=== PATIENT | female | born 1975 | race Caucasian/White ===

== ENCOUNTER 2016-10-25 11:51 | Emergency (ER) | payer SELFPAY ==
[2016-10-25] MEDS ORDERED: Ketorolac INJ* 30 MG/ML 1 ML VIAL IV ONE (12:17)
[2016-10-25] MEDS ORDERED: Dexamethasone IV* 4 MG/ML 1 ML (4 MG) IV SLOW PU ONE (12:21)
[2016-10-25] MEDS ORDERED: Orphenadrine Citrate IV* 30 MG/ML 2 ML VIAL IV ONE (12:21)
[2016-10-25 12:47] LABS: Hematocrit 41 % (35-47); Hemoglobin 13.8 g/dl (12.0-16.0); Mean Corpuscular HGB Conc 34 g/dl (31-36); Mean Corpuscular Hemoglobin 30 pg (27-31); Mean Corpuscular Volume 89 fL (80-97); Mean Platelet Volume 8 um3 (7.4-10.4); Red Blood Count 4.59 10^6/ul (4.0-5.4); Red Cell Distribution Width 13 % (10.5-15); White Blood Count 8.9 10^3/ul (3.5-10.8)
[2016-10-25 13:03] LABS: Albumin 4.3 g/dL (3.2-5.2); BUN/Creatinine Ratio 16.2 (8-20); Calcium 9.3 mg/dL (8.6-10.3); EGFR African American 122.6 (>60); EGFR Non-African American 95.4 (>60); Potassium 3.5 mmol/L (3.5-5.0); Total Bilirubin 0.4 mg/dL (0.2-1.0); Total Protein 7.3 g/dL (6.4-8.9)
--- NOTE | 2016-10-25 13:20 | RAD ---
Indication: Neck pain post fall. Comparison: No relevant prior exams available on the [facility] PACS for comparison. Technique: Noncontrast CT vertex of skull through foramen magnum. Report: The sulci, ventricles, and basal cisterns are normal for age. Lara matter white matter differentiation is preserved without evidence for edema. No intra or extra axial hemorrhage, mass, or fluid collection detected. Unremarkable visualized orbital contents. Unremarkable calvarium and skull base. Unremarkable scalp. The visualized paranasal sinuses and mastoid air spaces are clear. IMPRESSION: No evidence for traumatic brain injury or acute intracranial process. Negative unenhanced head CT.
--- NOTE | 2016-10-25 13:27 | RAD ---
INDICATION: Neck pain post fall. Post 3 level fusion in June 2011. COMPARISON: March 12, 2015 MRI. TECHNIQUE: Multidetector CT images foramen magnum to lung apices without contrast. Multiplanar reformation. REPORT: Negative for spondylolisthesis or facet subluxation at any level. Post anterior C4-C5, C5-C6, and C6-C7 fusion. No compelling evidence for loosening of the anterior cortical plate or fixation screws. Solid osseous fusion across the C6-C7 disc space. Bone graft visible at the C4-C5 and C5-C6 levels with probable partial osseous fusion. At C3-C4 uncinate process spurring results in mild LEFT foraminal stenosis. At C4-C5 uncinate process spurring results in slight RIGHT foraminal stenosis. At C6-C7 dorsal disc osteophyte complex results in mild impression on the ventral margin of the thecal sac. IMPRESSION: 1. No acute traumatic injury of the cervical spine evident. 2. Postsurgical change of C4-C5, C5-C6, and C6-C7 anterior fusion without suspicious finding. 3. Mild LEFT foraminal C3-C4, RIGHT foraminal C4-C5, and mild C6-C7 central canal stenosis.
--- NOTE | 2016-10-25 13:37 | RAD ---
Indication: Back pain post fall. Comparison: April 14, 2014 CT. Technique: Noncontrast CT lumbar sacral spine. Multiplanar reformation. Report: Negative for paravertebral hematoma. Negative for fracture or spondylolysis at any level. Normal vertebral alignment without spondylolisthesis at any level. T12-L1: Unremarkable disc level for age without acquired spinal stenosis. L1-L2: Unremarkable disc level for age without acquired spinal stenosis. L2-L3: Unremarkable disc level for age without acquired spinal stenosis. L3-L4: Unremarkable disc level for age without acquired spinal stenosis. L4-L5: Annular disc bulge. Severe posterior element hypertrophic arthropathy. Resulting severe acquired central canal stenosis and mild to moderate bilateral foraminal stenosis. L5-S1: Advanced facet joint osteoarthritis without central canal or foraminal stenosis. IMPRESSION: No traumatic lumbar sacral spine injury evident. Degenerative spondylosis and facet joint osteoarthritis with resulting spinal stenosis as described without significant change.
[2016-10-25 14:20] VITALS: BP 118/67
[2016-10-25 14:39] LABS: Urine Bacteria Absent (Absent); Urine Bilirubin Negative (Negative); Urine Glucose Negative (Negative); Urine Nitrite Negative (Negative)
--- NOTE | 2016-10-25 15:31 | ED ---
Kelvin Blount SooYoung, scribed for Scotty Gonzáles MD on 10/25/16 at 1217 . Back Pain - HPI Summary HPI Summary: A 41 y/o F presents to ED with c/o sudden-onset back pain due to fall this AM. Pt was getting dressed this AM, when she had a syncopal episode. She fell into the door frame and hit the ground. She rates her pain as 9-10 out of 10. Associated sx: intermittent numbness to LE, RUE pain, neck pain. Previously saw Dr. Toussaint, neuro, but has not seen anyone since he left. Sees Dr. Mendieta in [place] for pain management. She takes Zipsor and alpha-lipoic acid. She is having difficulty with her worker's comp insurance paying for her Rx meds this month. PMHx: neck spinal fusion in 2011 at [facility] [facility]. - History of Current Complaint Chief Complaint: EDBackInjuryPain Stated Complaint: FALL, NECK AND BACK PIAN, HEAD PAIN Time Seen by Provider: 10/25/16 12:09 Hx Obtained From: Patient, Family/Womens Health Nurse Practitioner Onset/Duration: Sudden Onset, Still Present Onset/Duration: Still Present Timing: Constant Severity Currently: Severe Pain Intensity: 10 Pain Scale Used: 0-10 Numeric Associated Signs And Symptoms: Positive: Numbness - LE, Other - pos: RUE pain, neck pain Related History: Previous Back Injury - Allergies/Home Medications Allergies/Adverse Reactions: Allergies Allergy/AdvReac Type Severity Reaction Status Date / Time Acetaminophen [From Tylenol] Allergy Hives Verified 10/25/16 12:28 Amoxicillin Allergy Hives/Diff. Verified 10/25/16 12:28 Breathing/I tching Clindamycin Allergy Hives/Diff. Verified 10/25/16 12:28 Breathing/I tching PMH/Surg Hx/FS Hx/Imm Hx Previously Healthy: No Endocrine/Hematology History: Denies: Hx Anticoagulant Therapy, Hx Diabetes Cardiovascular History: Denies: Hx Hypertension, Hx Pacemaker/ICD Respiratory History: Denies: Hx Asthma, Hx Chronic Obstructive Pulmonary Disease (COPD) History: Denies: Hx Renal Disease Sensory History: Denies: Hx Hearing Aid Neurological History: Denies: Hx Dementia, Hx Seizures Psychiatric History: Denies: Hx Panic Disorder - Cancer History Hx Radiation Therapy: No - Maternal Uncle, 3 Maternal cousins, 3 Paternal Aunts - Surgical History Surgery Procedure, Year, and Place: gallbladder 1998, GERD 2003, CERVICAL SPINE 2012 Infectious Disease History: No Infectious Disease History: Denies: Hx Hepatitis, Hx Human Immunodeficiency Virus (HIV), Traveled Outside the [place] in Last 30 Days - Family History Known Family History: Positive: Other - Breast CA - Social History Occupation: Disabled Lives: With Family Alcohol Use: n Hx Substance Use: No Substance Use Type: Reports: None Hx Tobacco Use: Yes Smoking Status (MU): Light Every Day Tobacco Smoker Review of Systems Negative: Fever Positive: Other - pos: back pain, RUE pain, neck pain Positive: Numbness - LE All Other Systems Reviewed And Are Negative: Yes Physical Exam - Summary Physical Exam Summary: General: Patient is a well developed female without any distress that is laying comfortably in the stretcher. Skin: Jewell, warm, dry HEAD AND FACE: No signs of trauma. EYES: PERRLA, EOMI x 2. EARS: Hearing grossly intact. MOUTH: Oropharynx within normal limits. NECK: Supple, trachea is midline, no adenopathy, no JVD. difficult exam due to patient being uncomfortable secondary to pain. As I palpates the skin very superficially patient jump in pain therefore she was placed in a hard collar immobilizer. Decreased ROM secondary to the pain. CHEST: Symmetric, no tenderness at palpation LUNGS: CTA bilaterally, no rales, rhonchi or wheezing CVS: RRR, no murmur, rub, or gallop ABDOMEN: soft and Nontender without masses, no guarding or rebound. Bowel sounds are active. No Hepato-splenomegaly. No signs of inguinal hernias. BACK: Patient walked into the ED room with symmetric ambulation, No signs of limping, antalgic, able to bear weight. No signs of trauma, no soft tissue or muscle tenderness, positive spasm in the Paraspinal muscles of the lumbar spine. No masses palpated. No CVAT, no flank ecchymosis . No sacroiliac notch tenderness, No saddle anesthesia ROM: flexion/ extension/ lateral bending and rotation, note normal Straight Leg Raise: negative Patellar reflexes: brisk, symmetric Muscle strength lower extremities. Dorsiflexion/ plantar flexion of ankles normal Lower extremities: Femoral, popliteal, posterior tibial, and pedal pulses with in normal, Rectal: Patient declined. Triage Information Reviewed: Yes Vital Signs On Initial Exam: Initial Vitals Temp Pulse Resp BP Pulse Ox 98.3 F 88 14 134/99 98 10/25/16 11:54 10/25/16 11:54 10/25/16 11:54 10/25/16 11:54 10/25/16 11:54 Vital Signs Reviewed: Yes - Daryl Coma Scale Best Eye Response: 4 - Spontaneous Best Motor Response: 6 - Obeys Commands Best Verbal Response: 5 - Oriented Glascow Coma Scale Comments: 15 Diagnostics - Vital Signs Vital Signs Temp Pulse Resp BP Pulse Ox 10/25/16 11:54 98.3 F 88 14 134/99 98 - Laboratory Lab Results: Lab Results 10/25/16 10/25/16 Range/Units 12:30 12:30 WBC 8.9 (3.5-10.8) 10^3/ul RBC 4.59 (4.0-5.4) 10^6/ul Hgb 13.8 (12.0-16.0) g/dl Hct 41 (35-47) % MCV 89 (80-97) fL MCH 30 (27-31) pg MCHC 34 (31-36) g/dl RDW 13 (10.5-15) % Plt Count 382 (150-450) 10^3/ul MPV 8 (7.4-10.4) um3 Neut % (Auto) 63.9 (38-83) % Lymph % (Auto) 29.1 (25-47) % Irion % (Auto) 4.1 (1-9) % Eos % (Auto) 2.0 (0-6) % Baso % (Auto) 0.9 (0-2) % Absolute Neuts (auto) 5.7 (1.5-7.7) 10^3/ul Absolute Lymphs (auto) 2.6 (1.0-4.8) 10^3/ul Absolute Monos (auto) 0.4 (0-0.8) 10^3/ul Absolute Eos (auto) 0.2 (0-0.6) 10^3/ul Absolute Basos (auto) 0.1 (0-0.2) 10^3/ul Absolute Nucleated RBC 0 10^3/ul Nucleated RBC % 0 Sodium 136 (133-145) mmol/L Potassium 3.5 (3.5-5.0) mmol/L Chloride 108 (101-111) mmol/L Carbon Dioxide 21 L (22-32) mmol/L Anion Gap 7 (2-11) mmol/L BUN 11 (6-24) mg/dL Creatinine 0.68 (0.51-0.95) mg/dL Est GFR ( Amer) 122.6 (>60) Est GFR (Non-Af Amer) 95.4 (>60) BUN/Creatinine Ratio 16.2 (8-20) Glucose 122 H (70-100) mg/dL Calcium 9.3 (8.6-10.3) mg/dL Total Bilirubin 0.40 (0.2-1.0) mg/dL AST 29 (13-39) U/L ALT 43 (7-52) U/L Alkaline Phosphatase 75 (34-104) U/L Total Protein 7.3 (6.4-8.9) g/dL Albumin 4.3 (3.2-5.2) g/dL Globulin 3.0 (2-4) g/dL Albumin/Globulin Ratio 1.4 (1-3) Result Diagrams: 10/25/16 12:30 10/25/16 12:30 Lab Statement: Any lab studies that have been ordered have been reviewed, and results considered in the medical decision making process. - CT BRAIN CT CT Interpretation: No Acute Changes - IMPRESSION: No evidence for traumatic brain injury or acute intracranial process. Negative unenhanced head CT. ED physician has reviewed this radiology report and agrees. CT Interpretation Completed By: Radiologist C-SPINE CT Interpretation: Positive (See Comments) - IMPRESSION: 1. No acute traumatic injury of the cervical spine evident. 2. Postsurgical change of C4-C5, C5-C6, and C6-C7 anterior fusion without suspicious finding. 3. Mild LEFT foraminal C3- C4, RIGHT foraminal C4-C5, and mild C6-C7 central canal stenosis. ED physician has reviewed this radiology report and agrees. CT Interpretation Completed By: Radiologist L-SPINE CT Interpretation: Positive (See Comments) - IMPRESSION: No traumatic lumbar sacral spine injury evident. Degenerative spondylosis and facet joint osteoarthritis with resulting spinal stenosis as described without significant change. ED physician has reviewed this radiology report and agrees CT Interpretation Completed By: Radiologist Re-Evaluation - Re-Evaluation 1 Re-Evaluation Time: 14:07 Change: Improved Comment: Discussing resuts and dispo with pt. She is feeling better, will f/u with Dr. Mendieta. Pt and family voiced understanding. Back Pain Course/Dx - Course Course Of Treatment: A 41 y/o F presents to ED with c/o sudden-onset back pain due to fall this AM. Pt was getting dressed this AM, when she had a syncopal episode. She fell into the door frame and hit the ground. She rates her pain as 9-10 out of 10. Associated sx: intermittent numbness to LE, RUE pain, neck pain. Previously saw Dr. Toussaint, neuro, but has not seen anyone since he left. Sees Dr. Mendieta in [place] for pain management. She takes Zipsor and alpha-lipoic acid. She is having difficulty with her worker's comp insurance paying for her Rx meds this month. PMHx: neck spinal fusion in 2011 at [facility] [place]. Assessment/Plan: In the ED course an IV access was obtained. Patient was placed in a front desk monitor. Patient was started with Norflex, Toradol and decadron. Labs within normal limits except for glucose of 122. C spine CT IMPRESSION: 1. No acute traumatic injury of the cervical spine evident. 2. Postsurgical change of C4-C5, C5-C6, and C6-C7 anterior fusion without suspicious. finding. 3. Mild LEFT foraminal C3-C4, RIGHT foraminal C4-C5, and mild C6-C7 central canal. stenosis. Head CT IMPRESSION: No evidence for traumatic brain injury or acute intracranial process. Negative unenhanced head CT. L spine CT IMPRESSION: No traumatic lumbar sacral spine injury evident. Degenerative spondylosis and facet joint osteoarthritis with resulting spinal stenosis as described without significant change. After medications patient is feeling better. She ambulated to the bathroom w/o a good steady walk. I discussed the case ith Dr. Rodriguez pain management and he will be happy to see patient tomorrow at his office. She will be given a prescription for [place]. Naproxen and Robaxin short course for the acute phase. She is ambulating out of the ED. At this point I discussed all the findings and test results with the patient. Patient was instructed to return to the emergency room immediately if any of the symptoms return or worsens. Patient understands and agrees. Patient is able to ambulate freely w/o aid or limp in the ER. Plan of care was discussed with the patient and patient understands and agrees. All questions were answered at patient satisfaction. There were no further complaints or concerns. Neurological exam before discharge: Patient is alert and oriented x 3. No acute neurological deficits. Patient is hemodynamically stable. Patient is to follow up with primary care physician in the next 2 3 days. He understands and agrees. - Diagnoses Differential Diagnosis/HQI/PQRI: Positive: Cauda Equina Syndrome, Fracture, Herniated Disc, Osteoporosis, Strain, Sprain Provider Diagnoses: Back pain, Neck pain, Accidental fall - Provider Notifications Discussed Care Of Patient With: John Mendieta - pain management Time Discussed With Above Provider: 12:22 Instructed by Provider To: Other - Discussing pain management for pt, recommends NSAIDS, lipoic acid. Discharge - Discharge Plan Condition: Stable Disposition: HOME Prescriptions: HYDROcodone/ACETAMIN 5-325 MG* [[place] 5-325 TAB*] 2 tab PO Q6HR PRN #9 MDD 4 PRN Reason: Pain HYDROcodone/ACETAMIN 5-325 MG* [[place] 5-325 TAB*] 1 tab PO Q4H PRN #9 tab MDD 4 PRN Reason: Pain Methocarbamol [Robaxin-750 MG TAB] 750 mg PO Q6HR PRN #9 PRN Reason: Pain Methocarbamol [Robaxin-750 MG TAB] 750 mg PO TID #9 tab Naproxen TAB* [Naprosyn 250 mg TAB*] 500 mg PO Q8H PRN #15 tab PRN Reason: Pain Patient Education Materials: Back Pain (ED), Neck Pain (ED), Fall Prevention ( ED), Methocarbamol (By mouth), Hydrocodone/Acetaminophen (By mouth), Naproxen ( By mouth) Referrals: Michoacano Chau NP [Primary Care Provider] - John Mendieta DO [Doctor of Osteopathy] - 3 Days Additional Instructions: Follow up with Dr. Mendieta in 3 days. Please return to the ED if you experience new or worsening symptoms. The documentation as recorded by the Kelvin brar SooYoung accurately reflects the service I personally performed and the decisions made by Eliecer turner Walter, MD.
[2016-10-25 15:38] LABS: Benzodiazepine Urine Screen None Detected (None Detect)
== END 2016-10-25 14:25 | disposition home or self-care (01) ==
LOC: ED 11:51
DX: M54.2 Cervicalgia (principal); M54.9 Dorsalgia, unspecified; W19.XXXA Unspecified fall, initial encounter; Y92.9 Unspecified place or not applicable; W22.09XA Striking against other stationary object, initial encounter; Z88.0 Allergy status to penicillin; Z72.0 Tobacco use
CPT/HCPCS: 36415; 70450; 72125; 72131; 80053; 80307; 81003; 81015; 85025; 87086; 96374; 96375; 99283; J1100; J1885; J2360

== ENCOUNTER 2016-10-27 13:04 | Inpatient (IN) | payer OTHER ==
[2016-10-27 14:40] LABS: Hematocrit 36 % (35-47); Hemoglobin 12.1 g/dl (12.0-16.0); Mean Corpuscular HGB Conc 33 g/dl (31-36); Mean Corpuscular Hemoglobin 30 pg (27-31); Mean Corpuscular Volume 90 fL (80-97); Mean Platelet Volume 8 um3 (7.4-10.4); Red Blood Count 4.03 10^6/ul (4.0-5.4); Red Cell Distribution Width 13 % (10.5-15); White Blood Count 8.8 10^3/ul (3.5-10.8)
[2016-10-27 15:16] LABS: Albumin 3.8 g/dL (3.2-5.2); Calcium 8.8 mg/dL (8.6-10.3); EGFR African American 109.5 (>60); EGFR Non-African American 85.2 (>60); Globulin 2.8 g/dL (2-4); Potassium 3.2 mmol/L (3.5-5.0); Total Bilirubin 0.3 mg/dL (0.2-1.0); Total Protein 6.6 g/dL (6.4-8.9)
--- NOTE | 2016-10-27 16:29 | RAD ---
HISTORY: Fall, urinary and stool retention COMPARISONS: CT dated October 25, 2016 TECHNIQUE: The following sequences were obtained of the lumbar spine: Sagittal and axial T1- and T2-weighted images, coronal T2-weighted images, and sagittal STIR images. FINDINGS: SPINAL CORD, CONUS, AND CAUDA EQUINA: The visualized spinal cord, conus, and cauda equina are normal in caliber, position, and signal intensity. ALIGNMENT: The alignment is normal. VERTEBRAL BODIES: There is mild anterolateral marginal osteophyte formation. JOINTS: There is facet hypertrophic change most pronounced at L4-L5 and L5-S1 MUSCULATURE: There is mild fatty infiltration INTERVERTEBRAL DISCS: There is mild diffuse loss of intervertebral disc height and T2 signal throughout the spine. AXIAL IMAGES: T11-T12: There is a broad-based right lateral recess disc protrusion measuring 0.2 cm in depth. There is no significant neural foraminal narrowing or central canal stenosis. T12-L1: There is no disc herniation, spinal stenosis, or neuroforaminal narrowing. L1-L2: There is no disc herniation, spinal stenosis, or neuroforaminal narrowing. L2-L3: There is no disc herniation, spinal stenosis, or neuroforaminal narrowing. L3-L4: There is bilateral facet hypertrophy. There is no significant neural foraminal narrowing or central canal stenosis. L4-L5: There is broad-based disc bulge with extensive facet and ligamentous of atrophy. There is mild bilateral neuroforaminal narrowing. There is severe narrowing of the central canal. L5-S1: There is bilateral facet hypertrophy. There is no significant neural foraminal narrowing or central canal stenosis. SOFT TISSUES: The visualized soft tissues of the abdomen are unremarkable. OTHER: None. IMPRESSION: 1. DEGENERATIVE DISC DISEASE AND OSTEOARTHRITIS. 2. THERE IS SEVERE NARROWING OF THE CENTRAL CANAL AT L4-L5. THERE IS NO SIGNIFICANT NEURAL FORAMINAL NARROWING.
[2016-10-27] MEDS ORDERED: Potassium Chlor TAB* 20 MEQ TAB.ER PO ONE (17:43)
[2016-10-27] MEDS ORDERED: Gadoteridol* (CONTRAST) 279.3 MG/ML 10 ML IV ONE (19:26)
[2016-10-27] MEDS ORDERED: Naproxen TAB* 250 MG PO PRN (19:36)
[2016-10-27] MEDS ORDERED: Omeprazole CAP* 20 MG PO PRN (19:36)
--- NOTE | 2016-10-27 21:38 | RAD ---
HISTORY: Right leg weakness, urinary retention, right arm weakness COMPARISONS: CT dated October 25, 2016, MRI dated March 12, 2015 TECHNIQUE: The following sequences were obtained of the cervical and thoracic spine: Sagittal and axial T1- and T2-weighted images, coronal T2-weighted images. Additionally, axial and sagittal T1 weighted images were obtained after contrast enhancement with a gadolinium-based intravenous contrast agent.. FINDINGS: BRAIN AND SPINAL CORD: The visualized spinal cord is normal in caliber, position, and signal intensity. The visualized portion of the brain is unremarkable. The cerebellar tonsils are normal in position. ALIGNMENT: The alignment is normal. VERTEBRAL BODIES: The patient is status post anterior cervical fusion at C4, C5, C6, and C7. JOINTS: There is mild costovertebral, uncovertebral, and facet osteoarthritis. MUSCULATURE: Unremarkable INTERVERTEBRAL DISCS: There is diffuse loss of intervertebral disc height and T2 signal throughout the spine. AXIAL IMAGES: C2-C3: There is no significant neural foraminal narrowing or central canal stenosis. C3-C4: There is a left lateral recess and foraminal disc protrusion measuring 0.4 centimeters in depth. There is a small central disc protrusion. There is severe left neural foraminal narrowing. There is mild narrowing of the central canal. . C4-C5: There is a right paracentral disc protrusion versus posterior osteophyte. There is no significant neural foraminal narrowing or central canal stenosis. C5-C6: There is no significant neural foraminal narrowing or central canal stenosis. There is a mild broad-based disc osteophyte complex.. C6-C7: There is a superior right paracentral disc extrusion extending from the C7-T1 level. There is mild narrowing of central canal. This is similar to the previous examination. C7-T1: As noted above, there is a broad-based central and right paracentral superior disc extrusion. There is moderate narrowing of the central canal. There is moderate bilateral neural foraminal narrowing. This is similar to the previous examination. T8-T9, there is a 0.3 cm right paracentral disc.. There is no significant neural foraminal narrowing of central canal stenosis. SOFT TISSUES: The visualized soft tissues of the neck are unremarkable. OTHER: There is no abnormal enhancement. IMPRESSION: 1. STATUS POST SPINAL FUSION. 2. DEGENERATIVE DISC DISEASE AND OSTEOARTHRITIS. 3. THERE ARE MULTIPLE DISC PROTRUSIONS AND EXTRUSIONS OF THE CERVICAL SPINE DESCRIBED ABOVE, SIMILAR TO THE 2016 EXAMINATION. RESULTS IN MODERATE NARROWING OF THE CENTRAL CANAL AT C7-T1, WITH MILD NARROWING AT C6-C7 AND C3-C4. THERE IS MULTILEVEL NEURAL FORAMINAL NARROWING DESCRIBED ABOVE.
--- NOTE | 2016-10-27 21:46 | RAD ---
HISTORY: Right leg weakness, urinary retention, right arm weakness COMPARISONS: MRI of the lumbar spine dated October 27, 2016 at 3:55 PM TECHNIQUE: The following sequences were obtained of the lower thoracic and lumbar spine: Sagittal and axial T1- and T2-weighted images, coronal T2-weighted images, and sagittal STIR images. Additionally, axial and sagittal T1 weighted images were obtained after contrast enhancement with a gadolinium-based intravenous contrast agent.. FINDINGS: SPINAL CORD, CONUS, AND CAUDA EQUINA: The visualized spinal cord, conus, and cauda equina are normal in caliber, position, and signal intensity. ALIGNMENT: The alignment is normal. VERTEBRAL BODIES: The bones are normal in signal intensity. There is mild anterolateral marginal osteophyte formation. JOINTS: There is facet hypertrophic change most pronounced at L4-L5 and L5-S1 MUSCULATURE: There is mild fatty infiltration. INTERVERTEBRAL DISCS: There is mild diffuse loss of intervertebral disc height and T2 signal throughout the spine. AXIAL IMAGES: At T8-T9, there is a right paracentral disc protrusion measuring 0.3 cm in depth. There is no significant neural foraminal narrowing or central canal stenosis. At T11-T12, there is a broad-based right lateral recess disc protrusion measuring 0.2 cm. There is no significant neural foraminal narrowing or central canal stenosis. At L4-L5, as noted on the previous examination, there is broad-based disc bulge with facet and ligamentous hypertrophy. This results in severe narrowing of the central canal. There is mild bilateral neural foraminal narrowing. SOFT TISSUES: The visualized soft tissues of the abdomen are unremarkable. OTHER: There is enhancement along the facet joints at L4-L5 IMPRESSION: 1. DEGENERATIVE DISC DISEASE AND OSTEOARTHRITIS. 2. NOTED ON THE PREVIOUS EXAMINATION, THERE IS SEVERE NARROWING OF THE CENTRAL CANAL AT L4-L5. 3. THERE IS ENHANCEMENT ALONG THE FACET JOINTS AT L4-L5 WHICH MAY REFLECT MORE ACUTE INFLAMMATORY COMPONENT TO THE FACET OSTEOARTHRITIS
--- NOTE | 2016-10-27 21:48 | RAD ---
HISTORY: Right leg weakness, right arm weakness, urinary retention COMPARISONS: Head CT dated October 25, 2016 TECHNIQUE: The following sequences were obtained of the head: Sagittal T1-weighted images, axial T2-weighted images, axial FLAIR images, axial susceptibility weighted images, axial T1-weighted images. Additionally, axial diffusion-weighted images were obtained with calculated apparent diffusion coefficients. Additionally, sagittal, coronal, and axial T1-weighted images were obtained after contrast enhancement with a gadolinium-based intravenous contrast agent. FINDINGS: HEMORRHAGE/INFARCT: There is no hemorrhage or acute infarct. MASSES/SHIFT: There is no mass or shift. EXTRA-AXIAL SPACES/MENINGES: There are no extra-axial fluid collections. SULCI AND VENTRICLES: The sulci and ventricles are normal in size and position for the patient's stated age. CEREBRUM: There are no focal parenchymal abnormalities. BRAINSTEM: There are no focal parenchymal abnormalities. CEREBELLUM: There are no focal parenchymal abnormalities. The cerebellar tonsils are normal in size and position. SELLA: The sella is normal. PINEAL: The pineal region is clear. CP ANGLE/TEMPORAL BONES: The labyrinthine structures are grossly normal. VESSELS: Normal flow-voids are noted within the visualized vertebral vasculature. DIFFUSION ABNORMALITIES: There are no diffusion abnormalities. PARANASAL SINUSES/MASTOIDS: The paranasal sinuses are clear. ORBITS: The orbits are unremarkable. BONES AND SOFT TISSUE: No bone or soft tissue abnormalities are noted. OTHER: There is no abnormal enhancement. IMPRESSION: UNREMARKABLE MRI OF THE BRAIN. NO ABNORMAL ENHANCEMENT.
[2016-10-27] MEDS: Oxymorphone IR (NF) 5 MG TAB PO SCH ×2 (22:14→22:16)
[2016-10-27] MEDS: Gabapentin CAP(*) 300 MG PO SCH (22:16)
[2016-10-27] MEDS: DULoxetine DR CAP* 30 MG CAP.DR PO SCH (22:16)
[2016-10-27] MEDS: Topiramate TAB(*) 25 MG PO SCH (22:17)
--- NOTE | 2016-10-27 23:01 | HP ---
HISTORY AND PHYSICAL: DATE OF ADMISSION: 10/27/16 PRIMARY CARE PROVIDER: DICTATION ENDS ABRUPTLY HERE [id number]/CPS #: [id number] MTDD
--- NOTE | 2016-10-27 23:25 | HP ---
HISTORY AND PHYSICAL: DATE OF ADMISSION: 10/27/16 PRIMARY CARE PROVIDER: Michoacano Chau NP CHIEF COMPLAINT: Numbness in right leg between hip and knee, worsened weakness in right upper and lower extremities. HISTORY OF PRESENT ILLNESS: Cinthia Gage is a 41-year-old female with history of cervical degenerative disk disease, status post fusion, on disability; fibromyalgia; chronic migraine headaches, who fell at home on 10/25/16, as she was reaching above her head to take off her night gown. She denies loss of consciousness and remembers during fall hitting her head and back on the ground. She was taken to the emergency room and had CT imaging of her spine and brain. CT of the cervical spine with no acute traumatic injury, but post surgical changes at C4-C5, C5-C6, and C6-C7. CT lumbar spine with no traumatic lumbosacral spinal injury, but with degenerative spondylolysis and facet joint osteoarthritis with spinal stenosis unchanged from prior CT scan, 04/14/14. This included an annular disk bulge at L4-L5 with severe posterior element hypertrophic arthropathy resulting in severe acquired central canal stenosis and [id number] bilateral foraminal stenosis. CT brain without contrast revealed no acute traumatic brain injury or acute intracranial process. The patient was discharged with prescription for Percocet, Robaxin, and naproxen. The patient with history of TYLENOL allergy causing itching, took 1 Percocet on the day of discharge from emergency room and noticed severe itching and did not resume medication, but of note less bowel movement and urination were on Wednesday (bowel movement prior to fall and urination in the emergency room for UA sample) . Since that time, the patient has not voided and her chief complaint is the progression of her baseline bilateral below knee total neuropathy to now include neuropathy on the right thigh between knee and hip along with right- sided weakness in her arm and leg. She had history of right hand weakness (of note, she is right handed) and had regained some functionality status post her spinal fusion surgery, but again after this recent fall has been unable to fully close her hand and struggle to write with a pencil. Because of these continued and new neurologic symptoms, the patient represented to the emergency room and an MRI of the lumbar spine without contrast here showed degenerative disk disease and osteoarthritis with severe narrowing of the central canal at L4 -L5 without significant neural foraminal narrowing. The emergency room physician contacted on-call neurologist, Dr. Sorto, who recommended admission for further spinal and brain imaging with MRI with and without contrast to include now cervical and thoracic spines along with brain. A Moise catheter was placed with 500 cc urine out. Of note, the patient attests that this right thigh neuropathy was present upon fall and initial evaluation in the ED. The patient also attests to lumbar lower back pain which is new and her chronic cervical neck pain. PAST MEDICAL HISTORY: Includes fibromyalgia; cervical disk disease, status post fusion; chronic neck pain resulting in disability. PAST SURGICAL HISTORY: Includes laparoscopic cholecystectomy and cervical fusion. MEDICATIONS: Include: 1. Cymbalta 60 p.o. b.i.d. 2. Gabapentin 300 mg p.o. at bedtime. 3. Robaxin 750 mg p.o. b.i.d. (new medication). 4. Naproxen 500 mg p.o. q.8 (new medication). 5. Prilosec 20 mg p.o. daily p.r.n. 6. Oxymorphone HCl 10 mg p.o. q.4 hours. 7. Topiramate 15 mg p.o. b.i.d. 8. Alpha-lipoic acid 300 mg p.o. q.8 (stopped in September after insurance denial) . ALLERGIES: Include ACETAMINOPHEN (itching), CLINDAMYCIN (hives), AMOXICILLIN. FAMILY HISTORY: Mother of breast cancer, age 64; father history of squamous skin carcinoma; brother with stroke. SOCIAL HISTORY: The patient is not currently working, on disability. 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 Lives with , who is medical decision maker if incapacitated (Dg Gage). REVIEW OF SYSTEMS: The patient attests to bilateral neuropathy, now progressive , to upper right leg; right leg weakness; right hand weakness; neck pain; chronic migraines; lumbar pain. The patient denies shortness of breath, chest pain, palpitations, racing heart rate, nausea, vomiting, abdominal pain, hematochezia, melena, dysuria, hematuria, speech impairment, vision changes, lesions, rashes, sick contacts, dizziness, loss of consciousness. The patient attests to constipation and urinary retention. Complete 14-point review of systems was completed and negative other than as described above. PHYSICAL EXAMINATION GENERAL: The patient in no acute distress, in [facility]. VITAL SIGNS: Blood pressure initially 94/53, 116/61 currently; temperature 98.4 Fahrenheit; pulse 60s to 70s; satting high 90s on room air. HEENT: Moist mucous membranes. Atraumatic, normocephalic. No cervical lymphadenopathy. Oropharynx clear. PULMONARY: Lungs clear to auscultation without wheezing, rales, or rhonchi. CARDIAC: Regular rate and rhythm. No murmurs, rubs, or gallops. ABDOMEN: Soft, nontender, nondistended. EXTREMITIES: Warm, well perfused. No peripheral edema. NEURO: The patient with complete sensory loss to light touch, pinprick, and vibration in bilateral lower legs, now progressive, of right leg, from knee to hip. 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 Cranial nerves II to XII intact. Hip flexors 4+/5- on left, 3+/4- on right (pain limited) radiating to lower back. Also, upper extremity testing limited by radiating pain to neck. Denies saddle anesthesia, attests to intact rectal tone. SKIN: No lesions. No rashes. LABORATORY DATA: WBC is 8.8, hemoglobin 12.1, hematocrit 36, and platelets 339. Sodium 139, potassium 3.2, chloride 105, carbon dioxide 26, BUN 12, creatinine 0.75. LFTs within normal limits. ASSESSMENT AND PLAN: The patient is a 41-year-old female, history of fibromyalgia, cervical spinal fusion, bilateral complete paresthesias in lower extremities, with recent fall 2 days prior to admission with complication of right thigh paresthesia, worsened right upper extremity and lower extremity weakness, concerning for L4-L5 spinal compression along with pending cervical imaging. Initial CT scan showed severe narrowing at L4-L5 and additional MRI imaging of the brain, cervical spine, and thoracic spine was recommended by consulting Neurology, Dr. Sorto; those are pending. We will follow up. Deniesr saddle anesthesia and attests to intact rectal tone. Given the newly developed constipation x2 days and urinary retention x2 days, although of note these are in the setting of new medication x1 of Percocet. Neurosurgical consultation will be obtained given above imaging and new focal neurological deficits. We will continue the patient's chronic pain and neuropathy medications for her cervical spine disease and fibromyalgia with Cymbalta, gabapentin, and Opana along with Topamax for her chronic migraines. The patient will be admitted for observation status for additional imaging, but may need transition to inpatient status if imaging and other physical findings are suggestive of need for surgical decompression. The patient is a full code. Her medical health care proxy is her , Dg Gage. She will be on the medicine service. We will replete her potassium and check her BMP in the morning. She can eat a regular diet for now. [id number]/[facility] #: [id number] MTDD
[2016-10-28 00:38] LABS: BUN/Creatinine Ratio 18.7 (8-20); Calcium 8.9 mg/dL (8.6-10.3); EGFR African American 109.5 (>60); EGFR Non-African American 85.2 (>60); Potassium 3.1 mmol/L (3.5-5.0)
[2016-10-28] MEDS: Oxymorphone IR (NF) 5 MG TAB PO SCH ×6 (02:15→20:29)
[2016-10-28] MEDS: DULoxetine DR CAP* 30 MG CAP.DR PO SCH ×2 (07:53→20:29)
[2016-10-28] MEDS: Topiramate TAB(*) 25 MG PO SCH ×2 (07:53→20:30)
[2016-10-28] MEDS ORDERED: Dexamethasone IV* 4 MG in NS 0.9% 50 ML* 50 ML IVPB SCH (11:00)
[2016-10-28] MEDS ORDERED: Dexamethasone IV* 4 MG/ML 1 ML (4 MG) ONE (12:29)
[2016-10-28] MEDS: Potassium Chlor TAB* 20 MEQ TAB.ER PO SCH ×2 (12:38→15:22)
--- NOTE | 2016-10-28 14:27 | CONS ---
CONSULTATION REPORT: DATE OF CONSULT: 10/28/16 PRIMARY CARE PHYSICIAN: Dr. Chau. REASON FOR CONSULT: Neck pain, low-back pain, paresthesias, numbness, urinary retention. HISTORY OF PRESENT ILLNESS: Ms. Gage is a 41-year-old female with a complicated medical history including fibromyalgia, on disability, cervical spine injury at work, status post fusion in 2011, with residual numbness and tingling in her forearms and her legs bilaterally. She has a history of chronic neck and back pain as well. She has a history of chronic migraine headaches. She was looking up, trying to grab something from a shelf on Wednesday , 10/25/16, when she fell backwards. She landed on her low back and states that she immediately felt pain in her neck and her lumbar spine. At that time, she states that she started to develop worsening numbness, tingling, and weakness in the right arm and leg that was more than her baseline and more than the left side. She also notes at that time that she started to have bladder difficulties with some urinary retention. She went to the ER on that day and was apparently given some hydrocodone, Robaxin, and naproxen. She states that she has an allergy to TYLENOL, but she took the Percocet because she was in so much pain and at that time developed itching. She states that the urinary retention started before she started taking the medication. She also notes some difficulty with her bowel movements at times. Since that time she has continued to worsen. Yesterday, she came back to the ER with continued pain, numbness, and tingling; the pain located mainly in her lumbar spine. The numbness and tingling, right greater than left, and now involving the entire right arm and right leg. She had no saddle anesthesia. She had no incontinence. She continues to have her typical chronic migraine headache, worse since her fall, dull and aching in nature at this point, and global. She describes it as severe at times. She has had no new vision changes, swallowing difficulties or speech difficulties. She states that she has had much more difficulty walking, although she was able to ambulate this morning some. She has had no other falls since that time. Overall, she feels that she is much worse than her baseline and that is why she came to the ER. I did speak with the ER physician last night and, at my request, multiple studies were ordered, as follows: Initial lumbar spine MRI showed degenerative disk disease and osteoarthritis, severe narrowing of the central canal at L4-5. No significant neural foraminal narrowing. I did review the films. She subsequently had a brain MRI, which showed no evidence of abnormal enhancement. I have reviewed the films, it was generally unremarkable. I reviewed her cervical spine MRI, which was largely unchanged from her prior MRI in 2016, shows significant degenerative disk disease and multiple disk protrusions and extrusions of the cervical spine. At C3-4, there is noted to be severe left neural foraminal narrowing as well as disk protrusion. At C4-5, right paracentral disk protrusion versus posterior osteophyte. At C5-6, broad based disk osteophyte complex. At C6-7, right paracentral disk extrusion extending from C7 to T1 level. There is mild narrowing of the central canal similar to previous exam. At C7-T1, broad based central and right paracentral superior disk protrusion. There is moderate narrowing of the central canal. There is moderate bilateral neural foraminal narrowing similar to previous exam. At T8-9, there is a 0.3 cm right paracentral disk protrusion. MRI of the lumbar spine, repeat, also showed enhancement along facet joint at L4-5, along with severe narrowing of the central canal at L4-5. The thoracic spine study is as noted above. Overnight she continued to have issues. No new findings, but continues to have the pain, numbness, and tingling involving her entire right side, arm and leg, and her typical pattern on the left side. She also noted that her Disability recently stopped her ongoing pain medications on 10/07/16 and since that time she has noted worsening symptoms as well. PAST MEDICAL HISTORY: As noted above. PAST SURGICAL HISTORY: Includes cervical fusion and laparoscopic cholecystectomy. HOME MEDICATIONS: Include: 1. Gabapentin 300 mg at bedtime. 2. Alpha lipoic acid 300 mg p.o. q.8 hours. 3. Omeprazole 20 mg p.o. daily. 4. Diclofenac 25 mg p.o. q.i.d. 5. Topiramate 50 mg p.o. b.i.d. 6. Opana 10 mg p.o. q.4 hours. 7. Duloxetine 60 mg p.o. b.i.d. 8. Oaks 1 tab p.o. q.4 hours p.r.n. 9. Naproxen 500 mg q.8 hours p.r.n. 10. Robaxin 750 mg p.o. b.i.d. ALLERGIES: CLINDAMYCIN, AMOXICILLIN, and ACETAMINOPHEN. FAMILY HISTORY: Noncontributory to her current issues. Mother had breast cancer. Her brother had a stroke. Father had squamous cell carcinoma of the skin. SOCIAL HISTORY: No tobacco, alcohol or drug use reported. She is currently on disability. REVIEW OF SYSTEMS: Review of systems in 14-organ systems as noted above, pertinent positives and negatives, otherwise negative. PHYSICAL EXAMINATION: Vital Signs: Temperature of 98.1, pulse of 60, respiratory rate of 16, pulse ox 97%, blood pressure 106/62 to 100/72 to 106/ 57. In general, she is a well-nourished obese female, sitting in her hospital chair. She is pleasant, well dressed, well groomed. HEENT: She is normocephalic, atraumatic. Sclerae are anicteric. Mucous membranes are moist. She has poor dentition. Neck: Stiff, with some pain with flexion and extension. No carotid bruits. Chest: Clear to auscultation bilaterally. Cardiovascular: Regular rate and rhythm without murmurs. Abdomen: Obese and nontender. Extremities: There is no clubbing, cyanosis or edema appreciated. Her skin is warm and dry with good pulses. Neurologic Exam: She is awake, alert, and oriented x3. Her speech is fluent. There is no dysarthria. Repetition is intact. Recall of recent and remote events are intact. Cranial nerves: Pupils are equally round and reactive to light. Extraocular muscles are intact. Visual hammer are full. No nystagmus was noted. Face is symmetric bilaterally. Her sensation is intact bilaterally. Hearing is intact bilaterally. Tongue is midline. Palate elevates symmetrically. Sternocleidomastoid and trapezius are intact, 5/5. Motor Exam: This was a very difficult examination due to poor effort. She does spontaneously move all of her extremities. She will raise her left leg off the chair and has resistance, 4/5, proximally and distally. Her right leg, she barely raises off the chair, has 4-/5 proximally. She has 4- dorsiflexion, 4+ plantar flexion on the right. Upper extremities, the left upper extremity she has 4+/5 proximally and distally. The right lower extremity, she has give away weakness, 4/5 proximally, 4-/5 distally. Again, exam was difficult due to poor effort and pain. Her DTRs are 3+ at the biceps and brachioradialis, 3+ at the patella, 2 + at the ankles. Equivocal Babinski's. Sensation: She has absent sensation to all modalities in her right arm to the neck and her right leg to the groin; circumferential, non-dermatomal. She states she cannot feel pressure, pinprick, vibration, proprioception. On the left side, she has some numbness and tingling , loss of light touch, pinprick, vibration, proprioception. Diminished in the left forearm and left lower leg to the knee. Otherwise intact. Her tone is normal. There is no atrophy apparent. Her [id number] and rapid alternating movements were slow, but intact. There was no tremor. There is no resting tremor noted. Her gait was not tested at this time. DIAGNOSTIC STUDIES/LAB DATA: MRI studies as noted above. Her complete metabolic profile was significant for a potassium of 3.2, otherwise normal. Her repeat potassium this morning was 3.1. Her CBC was normal. ASSESSMENT AND PLAN: Ms. Gage is a 41-year-old female with a complicated medical history including fibromyalgia, a history of work accident with cervical spine injury, status post fusion in 2011, with chronic pain, chronic numbness and tingling in her forearms bilaterally and her lower extremities bilaterally. She also has a history of some neuropathy with tingling and paresthesias in those distributions as well. She fell this last Wednesday, came to the ER, and was treated conservatively with non-steroidal and some pain medications. Since that time, she notes having some bladder retention. She was found to have some residual in her bladder in the ER and a catheter was placed. She also notes new right-sided numbness to her neck and right-sided leg numbness to her groin. She has no significant numbness or tingling in the abdomen or chest. There is no distinct sensory level. She also has no saddle anesthesia. At this point, given her MRI findings, her examination is somewhat unusual and difficult to tie together. Certainly, her cervical spine disease could be causing some of her trouble. She does have multilevel narrowing, but the distribution of her symptoms is unusual for stenosis or radiculopathy and there is no evidence of central cord damage, demyelination or syrinx. Her brain MRI shows no evidence of multiple sclerosis or other inflammatory lesions , which could explain her symptoms. Her thoracic spine does show some disease as well as her lumbar spine, which shows significant narrowing in the lower lumbar spine, which may be impinging upon her cauda equina. I am going to start her on dexamethasone and I am going to consult Neurosurgery to take a look at her spine to make sure that there are no acute surgical issues. Physical therapy will be ordered as well and will mobilize her. Continue conservative pain management. Her headaches are present and have been worse since her fall. I would continue her Topamax and, again, treat her with pain medications as necessary. She is on duloxetine and gabapentin for her fibromyalgia and I would continue those as well. Continue to monitor hor urinary retention once catheter is remvoed. She may need urodymanics, but currently she is catheterized. I would suggest trying to remove the catheter at some point in the next 24 hours and look for residual. I will continue to follow her closely and make further recommendations as necessary. Thank you for the opportunity to participate in her care. [id number]/[facility] #: [id number] RM
--- NOTE | 2016-10-28 15:27 | ED ---
Joanna Blount Alfonso, scribed for Elijah Basilio MD on 10/27/16 at 1529 . Complex/Multi-Sys Presentation - HPI Summary HPI Summary: This patient is a 41 year old F BIBA presenting to [facility] accompanied by daughter with a chief complaint of urinary and stool retention, which began two days ago after a fall due to a near-syncopal episode. She had a sharp pain radiate from her neck to her head before the fall, and landed on her arm. The patient rates the pain 8/10 in severity. Symptoms are alleviated by nothing. Patient reports neck pain, right arm pain, dizziness, lightheadedness, numbness in RLE and UE, and lower back pain. Patient has a PSHx of a cervical spinal fusion on 04/29/2011. She reports ambulating with a walker. - History Of Current Complaint Chief Complaint: EDGeneral Time Seen by Provider: 10/27/16 13:35 Hx Obtained From: Patient Onset/Duration: Sudden Onset, Lasting Days - 2 days Timing: Constant Severity Currently: Severe - 8/10 pain intensity Alleviating Factor(s): Nothing Associated Signs And Symptoms: Positive: Dizziness, Syncope - near-syncope, Back Pain, Recent Trauma - fall on two days ago due to near-syncopal episode, Other - neck pain, right arm pain, numbness in RLE and UE, lower back pain, lightheadedness Related History: Other - cervical spinal fusion 04/29/2011 - Allergies/Home Medications Allergies/Adverse Reactions: Allergies Allergy/AdvReac Type Severity Reaction Status Date / Time Acetaminophen [From Tylenol] Allergy Hives Verified 10/27/16 13:20 Amoxicillin Allergy Hives/Diff. Verified 10/27/16 13:20 Breathing/I tching Clindamycin Allergy Hives/Diff. Verified 10/27/16 13:20 Breathing/I tching Home Medications: Home Medications Alpha-Lipoic Acid (Thioctic AC [Alpha Lipoic Acid] 300 mg PO Q8H 10/27/16 [ History Confirmed 10/27/16] Diclofenac Potassium [Zipsor] 25 mg PO QID 10/27/16 [History Confirmed 10/27/16] Gabapentin CAP(*) [Neurontin 300 CAP(*)] 300 mg PO BEDTIME 10/27/16 [History Confirmed 10/27/16] Methocarbamol [Robaxin-750 MG TAB] 750 mg PO BID 10/27/16 [History Confirmed ] Omeprazole [Prilosec] 20 mg PO DAILY PRN 10/27/16 [History Confirmed 10/27/16] Oxymorphone HCl [Opana] 10 mg PO Q4HR 10/27/16 [History Confirmed 10/27/16] Topiramate 50 mg PO BID 10/27/16 [History Confirmed 10/27/16] PMH/Surg Hx/FS Hx/Imm Hx Endocrine/Hematology History: Denies: Hx Anticoagulant Therapy, Hx Diabetes Cardiovascular History: Denies: Hx Hypertension, Hx Pacemaker/ICD Respiratory History: Denies: Hx Asthma, Hx Chronic Obstructive Pulmonary Disease (COPD) History: Denies: Hx Renal Disease Sensory History: Denies: Hx Hearing Aid Neurological History: Denies: Hx Dementia, Hx Seizures Psychiatric History: Denies: Hx Panic Disorder - Cancer History Hx Radiation Therapy: No - Maternal Uncle, 3 Maternal cousins, 3 Paternal Aunts - Surgical History Surgery Procedure, Year, and Place: gallbladder 1998, GERD 2003, CERVICAL SPINE 2011 Infectious Disease History: No Infectious Disease History: Denies: Hx Hepatitis, Hx Human Immunodeficiency Virus (HIV), Traveled Outside the [place] in Last 30 Days - Family History Known Family History: Positive: Other - Breast CA - Social History Alcohol Use: None Hx Substance Use: No Substance Use Type: Reports: None Hx Tobacco Use: Yes Smoking Status (MU): Light Every Day Tobacco Smoker Review of Systems Negative: Fever, Chills Negative: Erythema Negative: Sore Throat Negative: Chest Pain Negative: Shortness Of Breath, Cough Positive: Other - Stool retention. Negative: Abdominal Pain, Vomiting, Nausea Positive: other - Urinary retention. Negative: dysuria, hematuria Positive: Other - neck pain, right arm pain and lower back pain. Negative: Edema Negative: Rash Neurological: Other - dizziness, numbness in RLE and UE, lightheadedness Positive: Syncope - near-syncope All Other Systems Reviewed And Are Negative: Yes Physical Exam Triage Information Reviewed: Yes Vital Signs On Initial Exam: Initial Vitals Temp Pulse Resp BP Pulse Ox 98.4 F 72 16 94/53 96 10/27/16 13:17 10/27/16 13:17 10/27/16 13:10/27/16 13:17 10/27/16 13:17 Vital Signs Reviewed: Yes Appearance: Positive: Well-Appearing, No Pain Distress, Well-Nourished Skin: Positive: Warm, Dry Head/Face: Positive: Normal Head/Face Inspection Eyes: Positive: Conjunctiva Clear Neck: Positive: Other: - Reduced Musculoskeletal ROM neck. (-) JVD, (-) Stridor , (-) Tracheal deviation, (-) Cervical adenopathy Respiratory/Lung Sounds: Positive: Other - Effort normal. (-) Respiratory distress, (-) Wheezes, (-) Rales Cardiovascular: Positive: RRR, Other - Heart sounds normal; Intact distal pulses ; The pedal pulses are 2+ and symmetric. Radial pulses are 2+ and symmetric. (- ) Murmur Abdomen Description: Positive: Nontender, Soft, Other: - Negative rebound. 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 Negative: Edema Left , Edema Right Neurological: Positive: Alert, Oriented to Person Place, Time Psychiatric: Positive: Affect/Mood Appropriate - Maddock Coma Scale Coma Scale Total: 15 Diagnostics - Vital Signs Vital Signs Temp Pulse Resp BP Pulse Ox 10/27/16 13:19 75 97 10/27/16 13:17 98.4 F 72 16 94/53 96 - Laboratory Lab Results: Lab Results 10/27/16 Range/Units 14:29 WBC 8.8 (3.5-10.8) 10^3/ul RBC 4.03 (4.0-5.4) 10^6/ul Hgb 12.1 (12.0-16.0) g/dl Hct 36 (35-47) % MCV 90 (80-97) fL MCH 30 (27-31) pg MCHC 33 (31-36) g/dl RDW 13 (10.5-15) % Plt Count 339 (150-450) 10^3/ul MPV 8 (7.4-10.4) um3 Result Diagrams: 10/27/16 14:29 10/27/16 14:29 Lab Statement: Any lab studies that have been ordered have been reviewed, and results considered in the medical decision making process. - Additional Comments Diagnostic Additional Comments: Lumbar Spine MRI reveals, per radiologist, 1. DEGENERATIVE DISC DISEASE AND OSTEOARTHRITIS. 2. THERE IS SEVERE NARROWING OF THE CENTRAL CANAL AT L4-L5. THERE IS NO SIGNIFICANT NEURAL FORAMINAL NARROWING. ED physician has reviewed this radiology report and agrees. Re-Evaluation - Re-Evaluation First Eval Re-Evaluation Time: 18:12 Comment: Physician discussed with patient finding of MRI and lab results. Complex Multi-Symp Course/Dx Assessment/Plan: This patient is a 41 year old F BIBA presenting to [facility] accompanied by daughter with a chief complaint of urinary and stool retention since two days ago. Her CC began after a fall due to a near-syncopal episode 2 days ago. She had a sharp pain radiate from her neck to her head before the fall , and landed on her arm. The patient rates the pain 8/10 in severity. Symptoms are alleviated by nothing. Patient reports neck pain, right arm pain, dizziness , lightheadedness, numbness in RLE and UE, and lower back pain. Patient has a PSHx of a cervical spinal fusion on 04/29/2011. She reports ambulating with a walker. Lumbar Spine MRI reveals, per radiologist, 1. DEGENERATIVE DISC DISEASE AND OSTEOARTHRITIS. 2. THERE IS SEVERE NARROWING OF THE CENTRAL CANAL AT L4-L5. THERE IS NO SIGNIFICANT NEURAL FORAMINAL NARROWING. ED physician has reviewed this radiology report and agrees. Consulted Dr. Sorto (neurologist) who recommended inpatient admission and further imaging. Consulted Dr. Lozano who agrees to admit. The patient is agreeable with this plan. - Diagnoses Provider Diagnoses: Back pain, Right leg weakness - Physician Notifications Discussed Care Of Patient With: Иван Sorto Time Discussed With Above Provider: 18:33 Instructed by Provider To: Other - Consulted Dr. Sorto (neurologist) who recommended inpatient admission and further imaging. Consulted Dr. Lozano who agrees to admit. Discharge - Discharge Plan Condition: Stable Disposition: ADMITTED TO [facility] documentation as recorded by the Joanna brar Alfonso accurately reflects the service I personally performed and the decisions made by me, Elijah Basilio MD.
[2016-10-28] MEDS: Dexamethasone IV* 4 MG/ML 1 ML (4 MG) IV SLOW PU SCH ×2 (18:00→23:35)
[2016-10-28] MEDS ORDERED: Magnesium Hydroxide LIQ* 30 ML UDC PO PRN (19:52)
[2016-10-28] MEDS ORDERED: Magnesium Hydroxide LIQ* 30 ML UDC PO ONE (19:52)
[2016-10-28] MEDS ORDERED: Senna TAB PO PRN (19:53)
[2016-10-28] MEDS: Gabapentin CAP(*) 300 MG PO SCH (20:30)
[2016-10-28] MEDS: Docusate CAP* 100 MG PO SCH (20:30)
--- NOTE | 2016-10-28 21:48 | PN ---
Subjective Date of Service: 10/28/16 Interval History: Dr. Stein of Neurosurgery consulted this AM. Neurology evaluated and started steroids. Pt ambulated in halls but with referred pain up spine with weight bearing on right leg. Objective Active Medications: Dexamethasone Sodium Phosphate (Decadron Iv*) 4 mg IV SLOW PU Q6H [facility] Last Admin: 10/28/16 18:00 Dose: 4 mg Docusate Sodium (Colace Cap*) 100 mg PO BID [facility] Last Admin: 10/28/16 20:30 Dose: 100 mg Duloxetine HCl (Cymbalta Cap*) 60 mg PO BID [facility] Last Admin: 10/28/16 20:29 Dose: 60 mg Gabapentin (Neurontin Cap(*)) 300 mg PO BEDTIME [facility] Last Admin: 10/28/16 20:30 Dose: 300 mg Magnesium Hydroxide (Milk Of Magnesia Liq*) 30 ml PO Q4H PRN PRN Reason: CONSTIPATION Naproxen (Naprosyn Tab*) 500 mg PO Q8H PRN PRN Reason: PAIN Omeprazole (Prilosec Cap*) 20 mg PO DAILY PRN PRN Reason: HEARTBURN Last Admin: 10/28/16 18:03 Dose: 20 mg Oxymorphone HCl (Opana Ir (Nf)) 10 mg PO Q4HR [facility] Last Admin: 10/28/16 20:29 Dose: 10 mg Senna (Senokot Tab*) 2 tab PO BEDTIME PRN PRN Reason: CONSTIPATION Topiramate (Topamax(*)) 50 mg PO BID [facility] Last Admin: 10/28/16 20:30 Dose: 50 mg Vital Signs 10/28/16 10/28/16 10/28/16 18:00 20:29 20:30 Respiratory 18 17 17 Rate Oxygen Devices in Use Now: None Appearance: No acute distress. Ears/Nose/Mouth/Throat: NL Teeth, Lips, Gums, Mucous Membranes Moist Neck: NL Appearance and Movements; NL JVP Respiratory: Symmetrical Chest Expansion and Respiratory Effort, Clear to Auscultation Cardiovascular: NL Sounds; No Murmurs; No JVD, RRR Abdominal: NL Sounds; No Tenderness; No Distention Extremities: No Edema Skin: No Rash or Ulcers Neurological: Alert and Oriented x 3, - - sensory loss b/l LE and right thigh to hip. b/l arms. 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 hyperreflexic. CN II-XII intact. Result Diagrams: 10/27/16 14:29 10/28/16 00:15 Additional Lab and Data: Lab Results 10/27/16 Range/Units 14:29 WBC 8.8 (3.5-10.8) 10^3/ul RBC 4.03 (4.0-5.4) 10^6/ul Hgb 12.1 (12.0-16.0) g/dl Hct 36 (35-47) % MCV 90 (80-97) fL MCH 30 (27-31) pg MCHC 33 (31-36) g/dl RDW 13 (10.5-15) % Plt Count 339 (150-450) 10^3/ul MPV 8 (7.4-10.4) um3 Assess/Plan/Problems-Billing Assessment: 41 year old female PMH cervical degenerative disc disease s/p fusion, fibromyalgia, baseline b/l below knee sensory loss and below elbow parasthesia p /w s/p fall with severe L4-5 cord compression, new urinary retention, right thigh sensory loss, worse right leg and arm weakness. - Patient Problems (1) Spinal stenosis at L4-L5 level Current Visit: Yes Status: Acute Code(s): M48.06 - SPINAL STENOSIS, LUMBAR REGION SNOMED Code(s): 51550078 Comment: Appreciate Neuro recs, steroids f/u Neurosurgery recs (2) Disc disease, degenerative, cervical Current Visit: Yes Status: Acute Code(s): M50.30 - OTHER CERVICAL DISC DEGENERATION, UNSP CERVICAL REGION SNOMED Code(s): 59732728 Comment: continue gabapentin, opana f/u Neuro and Neurosurgery recs (3) Fibromyalgia Current Visit: Yes Status: Acute Code(s): M79.7 - FIBROMYALGIA SNOMED Code (s): 979718528 Comment: continue home meds (4) Neuropathy Current Visit: Yes Status: Acute Code(s): G62.9 - POLYNEUROPATHY, UNSPECIFIED SNOMED Code(s): 683431261 Comment: continue gabapentin and steroids. (5) Headache, chronic migraine without aura Current Visit: Yes Status: Acute Code(s): G43.709 - CHRONIC MIGRAINE W/O AURA, NOT INTRACTABLE, W/O STAT MIGR SNOMED Code(s): 45321003 Comment: continue topomax (6) Urinary retention Current Visit: Yes Status: Acute Code(s): R33.9 - RETENTION OF URINE, UNSPECIFIED SNOMED Code(s): 219525303 Comment: s/p barraza, likely d/c in AM but pending NS recs. Status and Disposition: medicine inpatient. dispo pending NS evaluation Attending: Luisito Lozano
[2016-10-29] MEDS: Oxymorphone IR (NF) 5 MG TAB PO SCH ×3 (01:39→09:56)
[2016-10-29] MEDS: Dexamethasone IV* 4 MG/ML 1 ML (4 MG) IV SLOW PU SCH ×3 (05:43→18:07)
[2016-10-29] MEDS: Topiramate TAB(*) 25 MG PO SCH (08:54)
[2016-10-29] MEDS: DULoxetine DR CAP* 30 MG CAP.DR PO SCH (08:54)
[2016-10-29] MEDS: Docusate CAP* 100 MG PO SCH (08:55)
[2016-10-29 10:35] LABS: Calcium 8.9 mg/dL (8.6-10.3); EGFR Non-African American 108.1 (>60); Magnesium 2.3 mg/dL (1.9-2.7); Potassium 4.2 mmol/L (3.5-5.0)
[2016-10-29] MEDS: Oxymorphone IR (NF) 5 MG TAB PO PRN ×2 (12:46→18:06)
[2016-10-29 14:05] VITALS: BP 123/71
--- NOTE | 2016-10-29 14:36 | CONSULT ---
Consult Consult: Neurosurgery Consult Patient with prior work related injury for which she underwent extensive 4 level Anterior cervical fusion by Dr. Thomas.Following her surgery she had persistent numbness in her legs bilaterally as well as a component of RUE weakness. She was followed for her disabiltiy by Dr. Medrano until he left and now sees Dr. Mendieta for her pain management.She apparently fell on Wednesday after she had a severe jolt of pain in her neck while trying to raise her nightgown over her head.Since her fall she has had increased neck pain, increased right sided numbness and urinary retention.She was seen in our ED on the day of her fall,evaluated and released. She subsequently saw Dr. Mendieta on Wednesday and with her back pain and bladder complaints he felt she should go back to the ED.She was seen there and admitted. Her complaints at present are back pain, neck pain ,worsening numbness in her legs and right arm and urinary retention.She has undergone MRI imaging of her entire neural axis which was available for review. Exam Pleasant lady complaining of back, neck pain KJ 2/2 AJ 0/0 Decreased sensation in stocking distribution bilaterally Motor-give way weakness RUE secondary to pain,LT normal Back-severe pain with hip flexion,positive SLR bilaterally MRI L/S spine -moderate stenosis at L4-5 C spine post op fusion C4-C7 with bulge at C3-4 unchanged from prior studies Imp-Her complaints are grossly out of proportion to her exam findings and radiographic studies Plan-recommend PT D/C when ambulating well There is no lesion on her studies to account for bladder issues.
--- NOTE | 2016-10-29 17:09 | PN ---
Subjective Date of Service: 10/29/16 Interval History: Pt attests to continued and even ascending numbness on right hip. Dr. Stein ( Neurosurgery) evaluated and recommended Physical Therapy, no surgery. Barraza pulled. Pt walked halls. Objective Active Medications: Dexamethasone Sodium Phosphate (Decadron Iv*) 4 mg IV SLOW PU Q6H [facility] Last Admin: 10/29/16 12:27 Dose: 4 mg Docusate Sodium (Colace Cap*) 100 mg PO BID [facility] Last Admin: 10/29/16 08:55 Dose: 100 mg Duloxetine HCl (Cymbalta Cap*) 60 mg PO BID [facility] Last Admin: 10/29/16 08:54 Dose: 60 mg Gabapentin (Neurontin Cap(*)) 300 mg PO BEDTIME [facility] Last Admin: 10/28/16 20:30 Dose: 300 mg Magnesium Hydroxide (Milk Of Magnesia Liq*) 30 ml PO Q4H PRN PRN Reason: CONSTIPATION Last Admin: 10/29/16 12:48 Dose: 30 ml Naproxen (Naprosyn Tab*) 500 mg PO Q8H PRN PRN Reason: PAIN Last Admin: 10/29/16 12:47 Dose: 500 mg Omeprazole (Prilosec Cap*) 20 mg PO DAILY PRN PRN Reason: HEARTBURN Last Admin: 10/28/16 18:03 Dose: 20 mg Oxymorphone HCl (Opana Ir (Nf)) 10 mg PO Q3HR PRN PRN Reason: PAIN Last Admin: 10/29/16 12:46 Dose: 10 mg Senna (Senokot Tab*) 2 tab PO BEDTIME PRN PRN Reason: CONSTIPATION Topiramate (Topamax(*)) 50 mg PO BID [facility] Last Admin: 10/29/16 08:54 Dose: 50 mg Vital Signs 10/28/16 10/28/16 10/28/16 18:00 20:00 20:29 Temperature Pulse Rate Respiratory 18 16 17 Rate Blood Pressure (mmHg) O2 Sat by Pulse Oximetry 10/28/16 10/28/16 10/28/16 20:30 21:31 22:29 Temperature Pulse Rate 70 Respiratory 17 22 16 Rate Blood Pressure 106/48 (mmHg) O2 Sat by Pulse 95 Oximetry 10/28/16 10/28/16 10/29/16 22:30 23:39 01:39 Temperature 98.1 F Pulse Rate 76 Respiratory 16 16 15 Rate Blood Pressure 106/59 (mmHg) O2 Sat by Pulse 96 Oximetry 10/29/16 10/29/16 10/29/16 03:39 04:05 05:43 Temperature 98.2 F Pulse Rate 71 Respiratory 15 16 16 Rate Blood Pressure 106/56 (mmHg) O2 Sat by Pulse 97 Oximetry 10/29/16 10/29/16 10/29/16 07:43 07:53 08:00 Temperature 97.8 F 97.8 F Pulse Rate 67 61 Respiratory 18 15 18 Rate Blood Pressure 104/56 104/56 (mmHg) O2 Sat by Pulse 100 100 Oximetry 10/29/16 10/29/16 10/29/16 09:56 11:56 12:46 Temperature Pulse Rate 105 Respiratory 18 15 18 Rate Blood Pressure 115/64 (mmHg) O2 Sat by Pulse 95 Oximetry 10/29/16 10/29/16 14:05 14:46 Temperature 98.8 F Pulse Rate 95 Respiratory 18 18 Rate Blood Pressure 123/71 (mmHg) O2 Sat by Pulse 95 Oximetry Oxygen Devices in Use Now: None Appearance: no acute distress, anxious/frustrated appearing Ears/Nose/Mouth/Throat: NL Teeth, Lips, Gums, Mucous Membranes Moist Neck: NL Appearance and Movements; NL JVP, Trachea Midline Respiratory: Symmetrical Chest Expansion and Respiratory Effort, Clear to Auscultation Cardiovascular: NL Sounds; No Murmurs; No JVD, RRR Abdominal: NL Sounds; No Tenderness; No Distention, No Hepatosplenomegaly, - - obese Extremities: No Edema Skin: No Rash or Ulcers Neurological: Alert and Oriented x 3, - - complete anesthesia b/l knees and righ thigh. Reduced flamer after lasting strength R>L. Parasthesias b/l stocking glove. Result Diagrams: 10/27/16 14:29 10/29/16 10:03 Additional Lab and Data: Lab Results 10/27/16 Range/Units 14:29 WBC 8.8 (3.5-10.8) 10^3/ul RBC 4.03 (4.0-5.4) 10^6/ul Hgb 12.1 (12.0-16.0) g/dl Hct 36 (35-47) % MCV 90 (80-97) fL MCH 30 (27-31) pg MCHC 33 (31-36) g/dl RDW 13 (10.5-15) % Plt Count 339 (150-450) 10^3/ul MPV 8 (7.4-10.4) um3 Assess/Plan/Problems-Billing Assessment: 41 year old female PMH cervical degenerative disc disease s/p fusion, fibromyalgia, baseline b/l below knee sensory loss and b/l stocking-glove neuropathy p/w s/p fall with MRI lumbar spine demonstrating severe L4-5 cord compression, new urinary retention, right thigh sensory loss, worse right leg and right hand weakness. Neurosurgery not recommending any surgical intervention. - Patient Problems (1) Spinal stenosis at L4-L5 level Current Visit: Yes Status: Acute Code(s): M48.06 - SPINAL STENOSIS, LUMBAR REGION SNOMED Code(s): 15583939 Comment: Severe by MRI Lumbar spine on admission. New neurologic deficits in right UE. Has not urinated on own yet (barraza removed today) Appreciate Neuro recs, steroids Appreciate Neurosurgery recs: PT, no surgery. Pt very frustrated and asking to leave hospital for second opinion. They have tracked down her former neurosurgeon Dr. Medrano at [facility] and likely will seek 2nd opinion there after discharge. Physical Therapy (2) Disc disease, degenerative, cervical Current Visit: Yes Status: Acute Code(s): M50.30 - OTHER CERVICAL DISC DEGENERATION, UNSP CERVICAL REGION SNOMED Code(s): 69988887 Comment: continue gabapentin, opana f/u Neuro and Neurosurgery recs (3) Fibromyalgia Current Visit: Yes Status: Acute Code(s): M79.7 - FIBROMYALGIA SNOMED Code (s): 871467023 Comment: continue home meds (4) Neuropathy Current Visit: Yes Status: Acute Code(s): G62.9 - POLYNEUROPATHY, UNSPECIFIED SNOMED Code(s): 966814720 Comment: continue gabapentin and steroids. (5) Headache, chronic migraine without aura Current Visit: Yes Status: Acute Code(s): G43.709 - CHRONIC MIGRAINE W/O AURA, NOT INTRACTABLE, W/O STAT MIGR SNOMED Code(s): 60562217 Comment: continue topomax (6) Urinary retention Current Visit: Yes Status: Acute Code(s): R33.9 - RETENTION OF URINE, UNSPECIFIED SNOMED Code(s): 732982962 Comment: barraza removed, monitor with bladderscan if no void in 6 hours. Status and Disposition: medicine inpatient. Pt seeking discharge to seek 2nd opinion after need for barraza is ascertained (voiding trial). Attending: Luisito Lozano
--- NOTE | 2016-10-30 00:13 | PN ---
PROGRESS NOTE: DATE OF PROGRESS NOTE: 10/29/16 LOCATION: Currently in room 413, bed 2. SUBJECTIVE: Overnight, no issues, although she continues to have up to 8/10 pain in her neck and severe low back pain as well. She continues to have the complete numbness in her right arm to her shoulder, lower neck and her right leg to the groin. She also notes numbness in her left forearm to the elbow and left lower leg to the knee. These are both chronic in nature. She has not had a bowel movement since the 25 of October and overnight was given some laxatives. She is unclear whether the steroids have worked overnight. She has no new issues, but continues to complain of the same issues and feels that they are about the same without much improvement. She did at one point state that the dexamethasone made her body feel weird, but no major reactions. She has a Moise in place, which is draining well. OBJECTIVE: Vital Signs: Temp of 97.8, pulse is 61, respiratory rate of 15, pulse ox 100%, blood pressure 106/56 to 104/56 to 104/56. In general, she is a well- nourished, well-developed obese female, lying in her hospital bed. She is pleasant, well dressed, well groomed. HEENT: She is normocephalic, atraumatic. Sclerae anicteric. Mucous membranes are moist. Oropharynx is clear. Neck is stiff. No bruits. Chest: Clear to auscultation bilaterally. Cardiovascular: Regular rate and rhythm. Abdomen is obese, nontender. Extremities: No cyanosis noted. Skin is warm and dry. Neurologic Exam: She is awake, alert, and oriented x3. Her speech is fluent. There is no dysarthria. Pupils are equal, round, and reactive to light and accommodation. Face is symmetric. Extraocular muscles are intact. Visual hammer are full. Tongue is midline. She spontaneously moves all extremities, but has very poor effort in the upper and lower extremities, right greater than left. She is able to give some resistance on the right side, but minimal movement off of the bed. The examination is unchanged from yesterday. She does have more movement on the left side arm and leg with the ability to lift it off of the bed, but very poor effort and 4/5 resistance. DTRs remain 2+ in the upper and lower extremities. Sensation is noted above. Complete loss of sensation in the right arm to the neck and the right leg to the groin. She cannot complete [id number] rapid alternating movements. She cannot walk at this time. Neurosurgery has been consulted. They are going to see her today. ASSESSMENT AND PLAN: Ms. Gage is a 41-year-old female with a history of fibromyalgia, who presented to the hospital after a fall with worsening neck pain, worsening low back pain, urinary retention, also worsened numbness in her right side, she does have baseline numbness in the forearms bilaterally and lower legs to the knees bilaterally, but it has since extended to the entire arm and leg on the right side, although she has no sensory loss in her abdomen and her chest area. She does have some significant spinal stenosis in the lumbar spine. I put her on steroids yesterday. She has not noticed much improvement, but I think pending Neurosurgery evaluation, we should continue this. Neurosurgery is to see her today. I am going to check some muscle enzymes this morning to make sure we are not missing an under-lying myopathy, although given the focality of the symptoms, it would be unlikely. These symptoms do not necessarily correlate with the MRI findings. She does have some cervical spine disease, but no acute or severe compression of the cervical cord. The etiology of her urinary retention is unclear to me, could be medication related. She was given some hydrocodone recently. I suggest removing the Moise and monitoring her urine output and residuals. As far as her fibromyalgia is concerned, continue her gabapentin and Cymbalta. Continue Topamax for her headaches. She has been put on stool softener and medication for her constipation, which could be related to her underlying spinal issue as well. I will await Neurosurgery evaluation. In the meantime, continue pain medication as tolerated. She has had some recent issues with her Workers[employer] Compensation not filling her pain medications, which is concerning to her. I will continue to follow her closely and make further recommendations as necessary. [id number]/[facility] #: [id number] [facility]
--- NOTE | 2016-10-30 08:47 | DS ---
DISCHARGE SUMMARY: DATE OF ADMISSION: 10/28/16 DATE OF DISCHARGE: 10/29/16 ADMITTING PROVIDER: Luisito Lozano MD. PRIMARY CARE PHYSICIAN: Michoacano Chau NP. CHIEF COMPLAINT: Progressive numbness in right lower extremity between hip and knee and worsened we akness in right upper and lower extremities after a fall, 2 days prior to admission. PRIMARY DIAGNOSIS: L4-L5 severe central canal narrowing. HISTORY OF PRESENT ILLNESS AND HOSPITAL COURSE: Cinthia Gage is a 41-year-old female with history o f cervical degenerative disk disease, status post fusion, on workers compensation disability; fibrom yalgia; chronic migraine headaches, who fell at home on Wednesday, October 25, when she was reachin g above her head to take off her night gown resulting in a shooting pain in her neck and down the sp ine. She denied loss of consciousness, presented to the emergency room and had series of CT imaging of her spine and brain which showed no acute traumatic injury, but did demonstrate an anular disk b ulge at L4-L5 with severe posterior element hypertrophic arthropathy resulting in severe acquired ce ntral canal stenosis and [id number] bilateral foraminal stenosis. The patient was discharged with Percocet, naproxen, Robaxin, but noted increasing weakness and numbness in her right thigh and increased weakness in her right greater than left forearms and hands. She presented again to the em ergency room and had an MRI of her lumbar spine which demonstrated severe narrowing of the central c anal at L4-L5 without significant neural foraminal narrowing and neurologist, Dr. Sorto was consulted with further imaging including thoracic and cervical spines, and head MRI. The patient had complai nt of urinary retention for the last 2 days and a Moise was placed with the 500 cc out. The patient also denied having bowel movement in 2 days at home. The patient was admitted with inpatient status . Continued on her gabapentin, oxymorphone, and Topamax for chronic migraines. Dr. Sorto evaluated the patient daily and Dr. Stein, Neurosurgery, was consulted in the morning of hospital day #2. T he patient was evaluated by Dr. Stein on hospital day #3 and thought that no surgical intervention was indicated and recommendation for physical therapy was given. Dr. Sorto on hospital day #2 had p rescribed dexamethasone 4 mg daily; however, patient denied any improvement in her neurological symp toms and had progressive numbness present in her right upper extremity and what she attested to as i ncreasing inability to ambulate with a near fall. Physical Therapy was ordered, but the patient was adamant that she desired a second opinion with her former neurosurgeon who did her cervical surgery , Dr. Medrano, they have tracked down and apparently is now working at hospital not that far away in [place], [place] ([facility]). The patient was adamant that she wanted to discharged immediately to stefano mccullough second opinion with Dr. Medrano. The patient's Moise was removed and was able to void 100 cc a few hours later with postvoid residual confirming no significant residual (30 cc). The patient de nied any change in rectal tone or saddle anesthesia. The patient was discharged with new medication for prednisone taper. DISCHARGE MEDICATIONS: Include: 1. Cymbalta 60 p.o. b.i.d. 2. Gabapentin 300 mg p.o. q.h.s. 3. Robaxin 750 mg p.o. b.i.d. 4. Naproxen 500 mg p.o. q. 8 hours p.r.n. 5. Prilosec 20 mg p.o. daily p.r.n. 6. Oxymorphone hydrochloride 10 mg p.o. q. 4 hours. 7. Topiramate 15 mg p.o. b.i.d. 8. Senokot tab 2 tabs p.o. at bedtime. 9. Prednisone 10 mg tabs to be taken 30 mg for 3 days, 20 mg for 3 days, and 10 mg for 3 days. 10. Docusate 100 mg p.o. b.i.d. DISCHARGE DIET: Regular, unchanged. DISPOSITION: Home. The patient receives 24 hour support at home given that her works [employer] the day and her son works as a informatics coordinator and is available during the day. TIME SPENT: For discharge 35 minutes. [id number]/[facility] #: [id number]
== END 2016-10-29 19:00 | disposition home health service (06) | DRG 347 ==
LOC: ED 13:04 → MED 18:49 → OBSVTOIN 10-28 16:34
PROVIDERS: ADMIT Internal Medicine; ATTEND Internal Medicine
DX: M48.06 Spinal stenosis, lumbar region (principal); G95.29 Other cord compression; Z98.1 Arthrodesis status; M79.7 Fibromyalgia; R33.9 Retention of urine, unspecified; Z88.5 Allergy status to narcotic agent; Z88.1 Allergy status to other antibiotic agents; Z80.3 Family history of malignant neoplasm of breast; F17.200 Nicotine dependence, unspecified, uncomplicated; G62.9 Polyneuropathy, unspecified; G43.809 Other migraine, not intractable, without status migrainosus; M50.31 Other cervical disc degeneration, high cervical region; Z88.8 Allergy status to other drugs, medicaments and biological substances; G89.29 Other chronic pain
CPT/HCPCS: 36415; 70553; 72148; 72149; 72156; 72157; 80048; 80053; 83735; 85027; A9270-GY; A9579; G0378; J1100

== ENCOUNTER 2017-07-14 16:26 | Emergency (ER) | payer OTHER ==
[2017-07-14 17:19] VITALS: BP 129/88
--- NOTE | 2017-07-14 19:25 | UC ---
Lower Extremity/Ankle HPI - HPI Summary HPI Summary: 41 yo female with left foot swelling and ecchymosis no pain due to neuropathy 3 injuries in past 24 hours Objects dropped on foot - History of Current Complaint Chief Complaint: UCLowerExtremity Stated Complaint: LEFT FOOT COMPLAINT Time Seen by Provider: 07/14/17 18:49 Hx Obtained From: Patient Onset/Duration: Sudden Onset Severity Currently: None Pain Intensity: 0 Pain Scale Used: 0-10 Numeric Able to Bear Weight: Yes - Allergies/Home Medications Allergies/Adverse Reactions: Allergies Allergy/AdvReac Type Severity Reaction Status Date / Time acetaminophen Allergy Hives Verified 07/14/17 17:13 amoxicillin Allergy Hives/Diff. Verified 07/14/17 17:13 Breathing/I tching clindamycin Allergy Hives/Diff. 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 Other History Of: Negative For: Anticoagulant Therapy - Surgical History Surgical History: Yes Surgery Procedure, Year, and Place: gallbladder 1998, GERD 2003, CERVICAL SPINE 2011 - Family History Known Family History: Positive: Other - Breast CA - Social History Alcohol Use: None Substance Use Type: None Smoking Status (MU): Light Every Day Tobacco Smoker Type: Cigarettes Amount Used/How Often: 5 cigarettes daily - Immunization History Most Recent Influenza Vaccination: unknown Most Recent Pneumonia Vaccination: never Review of Systems Constitutional: Negative Skin: Bruising Eyes: Negative ENT: Negative Respiratory: Negative Cardiovascular: Negative Gastrointestinal: Negative Genitourinary: Negative Motor: Negative Neurovascular: Negative Musculoskeletal: Negative Neurological: Negative Psychological: Negative Is Patient Immunocompromised?: No All Other Systems Reviewed And Are Negative: Yes Physical Exam Triage Information Reviewed: Yes Appearance: Well-Appearing, No Pain Distress, Well-Nourished Vital Signs: Initial Vital Signs Temp 99.9 F 07/14/17 17:05 Pulse 98 07/14/17 17:05 Resp 16 07/14/17 17:05 BP 129/88 07/14/17 17:05 Pulse Ox 99 07/14/17 17:05 Vital Signs Reviewed: Yes Eyes: Positive: Conjunctiva Clear ENT: Positive: Hearing grossly normal. Negative: Nasal congestion, Nasal drainage, Trismus, Muffled voice, Hoarse voice Neck: Positive: Supple, Nontender, No Lymphadenopathy Respiratory: Positive: Lungs clear, Normal breath sounds, No respiratory distress, No accessory muscle use Cardiovascular: Positive: RRR, No Murmur Musculoskeletal: Positive: Edema @ - dorsum of left foot Neurological: Positive: Alert Psychological Exam: Normal Skin Exam: Normal Skin: Positive: rashes Diagnostics - Radiology No standard instances Xray Interpretation: No Acute Changes Radiology Interpretation Completed By: Radiologist Lower Extremity Course/Dx - Differential Dx/Diagnosis Provider Diagnoses: left foot contusion Discharge - Sign-Out/Discharge Documenting (check all that apply): Discharge/Admit/Transfer - Discharge Plan Condition: Stable Disposition: HOME Patient Education Materials: Contusion in Adults (ED) Referrals: Michoacano Chau NP [Primary Care Provider] - 5 Days (if swelling not better) Additional Instructions: genesis- remove at bedtime elevate post op shoe - Billing Disposition and Condition Condition: STABLE Disposition: Home Images Feet (Multiple View): 1 - swollen/tender
--- NOTE | 2017-07-14 20:00 | RAD ---
Indication: Left foot pain. 3 views of left foot are reviewed. There is no fracture or dislocation. No other bone or joint abnormality is identified. IMPRESSION: No fracture of the left foot is noted.
== END 2017-07-14 20:16 | disposition home or self-care (01) ==
LOC: UCCORT 16:26
DX: S90.32XA Contusion of left foot, initial encounter (principal); W20.8XXA Other cause of strike by thrown, projected or falling object, initial encounter; Y93.9 Activity, unspecified; Y92.9 Unspecified place or not applicable; Z88.6 Allergy status to analgesic agent; Z88.1 Allergy status to other antibiotic agents; Z88.0 Allergy status to penicillin; F17.210 Nicotine dependence, cigarettes, uncomplicated
CPT/HCPCS: 99213; G0463

== ENCOUNTER 2017-11-04 12:46 | Emergency (ER) | payer OTHER ==
--- NOTE | 2017-11-04 14:03 | ED ---
Neck Pain - HPI Summary HPI Summary: This patient is a 42 year old F presenting to [facility] accompanied by her with a chief complaint of 10/10 body pain, primarily her neck, since 929 s/p 2x falls. She states she fell due to her legs giving out; the first episode she was caught and set down gently, but the second fall led to a heavier impact, as there was no one to break her fall. She denies LOC and head injury. She endorses neck, BUE pain, lower back pain, BLE pain, bilateral shoulder pain, and right-sided hemiparesis and numbness; she notes mild hemiparesis before the falls, but sx were severely aggravated s/p falling. PMHx C7 impeding spinal cord. SHx C3-C6 fusion. Dr. Lopez Spence is surgeon, the patient is to consult with him 11/08/17. She denies PMHx CVA. - History of Current Complaint Chief Complaint: EDWeakness Stated Complaint: RT SIDE WEAKNESS FROM FALL X2 THIS AM Time Seen by Provider: 11/04/17 13:32 Hx Obtained From: Patient Onset/Duration Of Injury/Symptoms: Hours Mechanism Of Injury: Other - fall Timing: Constant Onset/Duration: Sudden Onset, Still Present Severity Initially: Moderate Severity Currently: Severe Pain Intensity: 10 Pain Scale Used: 0-10 Numeric Location: Diffuse Aggravating Factors: Nothing Alleviating Factors: Nothing Associated Signs & Symptoms: Positive: Weakness - right-sided hemiparesis and numbness. Negative: Fever Related History: Previous Neck Injury - c7 impeding spinal cord, C3-C6 fusion - Allergies/Home Medications Allergies/Adverse Reactions: Allergies Allergy/AdvReac Type Severity Reaction Status Date / Time acetaminophen Allergy Hives Verified 11/04/17 14:12 amoxicillin Allergy Hives/Diff. Verified 11/04/17 14:12 Breathing/I tching clindamycin Allergy Hives/Diff. Verified 11/04/17 14:12 Breathing/I tching PMH/Surg Hx/FS Hx/Imm Hx Endocrine/Hematology History: Denies: Hx Anticoagulant Therapy, Hx Diabetes Cardiovascular History: Denies: Hx Hypertension, Hx Pacemaker/ICD Respiratory History: Denies: Hx Asthma, Hx Chronic Obstructive Pulmonary Disease (COPD) GI History: Reports: Hx Gall Bladder Disease History: Denies: Hx Renal Disease Musculoskeletal History: Reports: Hx Orthopedic Injury - Neck from falling on ice, Other Musculoskeletal History - c3-c7 cervical spine fusion Sensory History: Reports: Hx Contacts or Glasses Denies: Hx Legally Blind, Hx Deafness, Hx Hearing Aid Opthamlomology History: Reports: Hx Contacts or Glasses Denies: Hx Legally Blind EENT History: Denies: Hx Deafness Neurological History: Reports: Hx Migraine Denies: Hx Dementia, Hx Seizures, Other Neuro Impairments/Disorders - Neck surgery 2012 after falling on ice Psychiatric History: Denies: Hx Panic Disorder - Cancer History Hx Radiation Therapy: No - Surgical History Surgery Procedure, Year, and Place: GALLBLADDER 1998, GERD 2003, CERVICAL SPINE 2012 Infectious Disease History: No Infectious Disease History: Denies: Hx Hepatitis, Hx Human Immunodeficiency Virus (HIV), Traveled Outside the [place] in Last 30 Days - Family History Known Family History: Positive: Other - Breast [place] - Social History Lives: With Family Alcohol Use: None Hx Substance Use: No Substance Use Type: Reports: None Hx Tobacco Use: Yes Smoking Status (MU): Light Every Day Tobacco Smoker Type: Cigarettes Amount Used/How Often: 5 cigarettes daily Review of Systems Negative: Fever Positive: no symptoms reported Positive: Arthralgia - diffuse body pain, Myalgia - diffuse body pain, Decreased ROM - right side diffuse Positive: Weakness - right side diffuse, Numbness - right side diffuse. Negative: Headache, Syncope - LOC All Other Systems Reviewed And Are Negative: Yes Physical Exam - Summary Physical Exam Summary: Appearance: Well appearing, no pain distress Skin: warm, dry, reflects adequate perfusion Head/face: normal Eyes: EOMI, IRENE ENT: normal Neck: supple, non-tender Respiratory: CTA, breath sounds present Cardiovascular: RRR, pulses symmetrical Abdomen: non-tender, soft Bowel: present Musculoskeletal: pulse present b/l Neuro: alert and oriented. motor 4/5 rt side Triage Information Reviewed: Yes Vital Signs On Initial Exam: Initial Vitals Temp Pulse Resp BP Pulse Ox 98.6 F 86 16 142/84 98 11/04/17 13:27 11/04/17 13:27 11/04/17 13:27 11/04/17 13:27 11/04/17 13:27 Vital Signs Reviewed: Yes - Daryl Coma Scale Best Eye Response: 4 - Spontaneous Best Motor Response: 6 - Obeys Commands Best Verbal Response: 5 - Oriented Coma Scale Total: 15 Diagnostics - Vital Signs Vital Signs Temp Pulse Resp BP Pulse Ox 11/04/17 13:27 98.6 F 86 16 142/84 98 - Laboratory Result Diagrams: 11/04/17 14:21 11/04/17 14:21 Lab Statement: Any lab studies that have been ordered have been reviewed, and results considered in the medical decision making process. - CT Brain CT Interpretation: No Acute Changes CT Interpretation Completed By: Radiologist - No CT evidence for traumatic brain injury or acute intracranial process. Dr. Norton has reviewed this report. C-spine CT Interpretation Completed By: Radiologist - No CT evidence for traumatic cervical spine injury. Postsurgical changes of multilevel fusion as described. Dr. Norton has reviewed this report. - EKG 1349 Cardiac Rate: NL - 66 EKG Rhythm: Sinus Rhythm ST Segment: Normal Ectopy: None EKG Interpretation: No acute changes. Re-Evaluation - Re-Evaluation First Eval Re-Evaluation Time: 15:54 Change: Unchanged Comment: Discussed neuro recommendation for transfer, pt and family will decide. They decided they do not want to be transferred, they will wait for her scheduled follow up with Dr. Spence on Wednesday. Neck Course/Dx - Course Course Of Treatment: A 42-year-old F presents to the ED with a CC of neck pain since 2x falls at 0930. (+) right sided hemiparesis, numbness. (+) diffuse body pain. (-) LOC, head injury. SHx C3-C6 fusion following an injury from falling on ice. PMHx C7 impeding spinal cord. A CT brain was (-). A CT C-spine reveals no CT evidence for traumatic cervical spine injury. Postsurgical changes of multilevel fusion as described. An EKG reveals NSR at 66 BPM with no acute changes. d/w dr stein and he recommended to transfer the pt to [facility] for dr laura gonzalez. Pt decided she does not want to be transferred, desires discharge, endorses she will wait for her scheduled follow up with Dr. Spence on wednesday instead of transfer today. - Diagnoses Differential Dx/HQI/PQRI: Positive: Cervical Fracture, Strain, Other - head injury Provider Diagnoses: Neck injury, Head injury - Physician Notifications Discussed Care Of Patient With: Dg Stein Time Discussed With Above Provider: 15:50 Instructed by Provider To: Other - Pt should go to [facility] in [place] and see Dr. Spence. Discharge - Sign-Out/Discharge Documenting (check all that apply): Patient Departure - discharge - Discharge Plan Condition: Stable Disposition: HOME Patient Education Materials: Cervical Strain (ED), Head Injury (ED) Referrals: Dg Stein MD [Medical Doctor] - 3 Days Additional Instructions: Return to the emergency department for any new or worsening symptoms. Make sure you go to your appointment with Dr. Spence on Wednesday. - Billing Disposition and Condition Condition: STABLE Disposition: Home - Attestation Statements Document Initiated by Joyibmaryan: Yes Documenting Scribe: Francisco J Bales Provider For Whom Aylin is Documenting (Include Credential): Dr. Blaze Norton MD Scribe Attestation: Francisco J Blount scribed for Dr. Blaze Norton MD on 11/04/17 at 1625. Scribe Documentation Reviewed: Yes Provider Attestation: The documentation as recorded by the Francisco J brar accurately reflects the service I personally performed and the decisions made by me, Dr. Blaze Norton MD
--- OUTSIDE RECORDS SUMMARY | 2017-11-04 14:13 | XMS REPORT ---
:1975 External Reference #:[id number] Author Organization [facility] Address [address] [place] [address] [place] [address] Phone [phone] Care Team Providers Name Role Phone Michoacano Chau NP Primary Care Physician Unavailable Payers Type Date Identification Numbers Payment Provider Subscriber Commercial Policy Number: [id number] [facility] Justice Gage Group Number: [id number] [id number] Group Name: [place] [address] PayID: [id number] Workers Compensation Onset: 2010 Policy Number: [employer] Justice Gage [id number] Insurance Group Number: [id number] [address] Group Name: : [phone] [place] [address] PayID: [id number] Workers Compensation PayID: [id number] WC Controverted Justice Gage Problems Date Description Provider Status Onset: 11/11/2012 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 Active Onset: 11/11/2012 Postsurgical Status Other Alexi Medrano M.D. Active Onset: 08/16/2013 Reflex sympathetic dystrophy of Alexi Medrano M.D. Active lower extremity Onset: 08/16/2013 Reflex sympathetic dystrophy of Alexi Medrano M.D. Active upper extremity Onset: 09/13/2017 Cervical spondylosis with Dg Stein M.D. Active myelopathy Onset: 09/08/2017 Spinal stenosis of lumbar region Aidan Sorto M.D. Active Onset: 03/10/2017 Chronic pain Aidan Sorto M.D. Active Onset: 01/13/2017 Urinary incontinence Aidan Sorto M.D. Active Onset: 01/13/2017 Skin sensation disturbance Aidan Sorto M.D. Active Onset: 01/13/2017 Low back pain Aidan Sorto M.D. Active Onset: 11/11/2012 Myalgia & Myositis Unspec Alexi Medrano M.D. Inactive Inactive: 08/16/2013 Family History Date Family Member(s) Problem(s) Comments General Cancer squamous cell carcinoma General paternal grandfather-heart issues General maternal grandfather-leukemia Mother Breast Cancer Siblings brother(Winston) stroke HTN Social History Type Date Description Comments Marital Status Lives With Spouse Lives With Children Occupation Disabled ETOH Use Denies alcohol use Recreational Drug Use Denies Drug Use Smoking Light tobacco smoker (10 or fewer cigarettes/day) Daily Caffeine Consumes on average 3 cups of regular coffee per day Daily Caffeine Consumes on average 1 soda per day Exercise Type/Frequency Exercises rarely Allergies, Adverse Reactions, Alerts Date Description Reaction Status Severity Comments 11/11/2012 Tylenol active hives and rash in mouth 01/13/2017 Amoxicillin active hives,rash and vomiting 01/13/2017 Clindamycin active rash.hives and stomach upset 09/08/2017 Shrimp,Lobster active Hives, thrush Medications Medication Date Status Form Strength Qnty SIG Indications Ordering Provider Cane - Four Active Misc 06/15" 2units Dx: Alexi Brandt Type 014 cervical david Medranoopathy Cem . Oxymorphone Active Tablets ER 10mg 40tabs 1 tab by Unknown HCL ER 000 12HR mouth four times per day Gralise Active Tablets 300mg 1 po every Unknown 000 evening.. Duloxetine HCL [address] 60mg 1 by po Unknown 000 Part bid Zipsor 0 Active Capsules 25mg 1 by mouth Unknown 000 four times a day Senna-Lax Active Tablets 8.6mg take 2 Unknown 000 tablets by mouth daily or may uses miralax but doesnt take both at same time. 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 014 times a day pain Topiramate Hx Tablets 25mg 90tabs 1 po qid Alexi Lester - Mitchell, M.D. 017 Oxycontin Hx Tablets ER 10mg 60tabs 1 po bid Alexi Lester - 12HR Mitchell, M.DBi [address] 30mg 60caps One bid Alexi Stein 012 - Part Mitchell, M.D. 014 Hydrocodone/Ac Hx Tablets 5-325mg 120tab 1-2 po qid Alexi Stein etaminophen 012 - s prn Mitchell, M.DBi 013 Tylenol/Codein Hx Tablets 300-30mg 40tabs 1-2 po Mick steinberg #3 012 - q4hrs prn Monroeupjacki, pain M.DBi 013 Percocet Hx Tablets 5-325mg 40tabs 1-2 po q4h Mick Loco - prn pain Judy, M.DBi 013 Robaxin-750 Hx Tablets 750mg 50tabs 1-2 po q Alexi Stein 012 - 8hrs prn Mitchell, muscle M.D. 013 spasm [place] J Collar Hx 1units Use as 722.71 Mick M. 012 - directed Zupjacki, Cem 013 723.0 721.0 Medrol Dosepak 04/03/2011 - Hx Tablets 4mg 1tabs follow package [place] 11/11/2012 directions michael Islas M.D. with food Flexeril 04/03/2011 - Hx Tablets 10mg 90tabs 1 po tid prn Aguila 11/11/2012 muscle pain Cem Islas Oxycontin - Hx T12a 15mg 90units one tab every Alexi Stein 05/18/2013 8 hours. Cem Medrano Opana - Hx Tablets 5mg 120tabs 1 tablet by Alexi Stein 05/15/2014 mouth four Mitchell, times a day as Cem needed Etodolac - Hx Capsules 300mg 60caps bid prn Alexi Stein 08/21/2014 Cem Medrano Diclofenac/Baclof - Hx From Unknown en/Bupivacaine/Cy 05/15/2014 compounding clobenaprene/[facility]- pentin/Ir Apply cream3-4 times daily prn Duloxetine HCL - Hx Caps DR 30mg take one Unknown 05/15/2014 Part capsule by mouth twice daily Dulcolax - Hx Tablets DR 5mg ii tablets as Unknown 01/12/2017 needed Tizanidine HCL - Hx Capsules 4mg 90caps 1/2 tab qd Unknown 05/15/2014 Methocarbamol - Hx Tablets 750mg 1 tab by mouth Unknown 01/12/2017 twice daily Alpha-Lipoic Acid - Hx Tablets 300mg 1 tab by mouth Unknown 01/12/2017 at bedtime Fluconazole - Hx Tablets 150mg 1 tab every 5 [place], 03/01/2017 days-has 1 Mashelle, 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 Vital Signs Date Vital Result Comment 10/13/2017 Height 64.50 inches 5'4.50" Weight 204.00 lb BP Systolic Sitting 110 mmHg BP Diastolic Sitting 60 mmHg Pain Level 6 BMI (Body Mass Index) 34.5 kg/m2 10/07/2017 Height 64.50 inches 5'4.50" Weight 104.00 lb Heart Rate 84 /min BP Systolic 110 mmHg BP Diastolic 82 mmHg BMI (Body Mass Index) 17.6 kg/m2 10/01/2017 Height 64.50 inches 5'4.50" Weight 204.00 lb Heart Rate 76 /min BP Systolic 142 mmHg BP Diastolic 80 mmHg Respiratory Rate 16 /min Pain Level 10 BMI (Body Mass Index) 34.5 kg/m2 09/13/2017 Height 64.50 inches 5'4.50" Weight 206.00 lb Heart Rate 72 /min BP Systolic Sitting 110 mmHg BP Diastolic Sitting 70 mmHg Respiratory Rate 16 /min Pain Level 9 BMI (Body Mass Index) 34.8 kg/m2 09/08/2017 Height 64.50 inches 5'4.50" Weight 210.00 lb Heart Rate 72 /min BP Systolic 104 mmHg BP Diastolic 78 mmHg Respiratory Rate 20 /min Pain Level 8 O2 % BldC Oximetry 98 % BMI (Body Mass Index) 35.5 kg/m2 03/10/2017 Height 64.50 inches 5'4.50" Weight 201.00 lb Heart Rate 74 /min BP Systolic Sitting 122 mmHg BP Diastolic Sitting 72 mmHg Respiratory Rate 16 /min Pain Level 8 weather induced BMI (Body Mass Index) 34.0 kg/m2 03/02/2017 Height 64.50 inches 5'4.50" Weight 201.00 lb Heart Rate 83 /min BP Systolic 122 mmHg BP Diastolic 90 mmHg Respiratory Rate 16 /min Pain Level 6 O2 % BldC Oximetry 98 % BMI (Body Mass Index) 34.0 kg/m2 01/13/2017 Height 64.50 inches 5'4.50" Weight 198.00 lb Heart Rate 73 /min BP Systolic Sitting 116 mmHg BP Diastolic Sitting 88 mmHg Respiratory Rate 16 /min Pain Level 8 O2 % BldC Oximetry 98 % BMI (Body Mass Index) 33.5 kg/m2 03/06/2015 Height 64 inches 5'4" Weight 198.00 lb Heart Rate 80 /min BP Systolic Sitting 114 mmHg BP Diastolic Sitting 80 mmHg Pain Level 9 10 is when she can't get up... BMI (Body Mass Index) 34.0 kg/m2 11/28/2014 Height 64 inches 5'4" Weight 202.00 lb Heart Rate 84 /min BP Systolic Sitting 118 mmHg BP Diastolic Sitting 80 mmHg BMI (Body Mass Index) 34.7 kg/m2 10/03/2014 Height 64 inches 5'4" Heart Rate 78 /min BP Systolic Sitting 118 mmHg BP Diastolic Sitting 84 mmHg 08/22/2014 Height 64 inches 5'4" Weight 185.00 lb Heart Rate 80 /min BP Systolic Sitting 114 mmHg BP Diastolic Sitting 84 mmHg BMI (Body Mass Index) 31.8 kg/m2 05/16/2014 Height 64 inches 5'4" Weight 185.00 lb Heart Rate 80 /min BP Systolic Sitting 114 mmHg BP Diastolic Sitting 90 mmHg BMI (Body Mass Index) 31.8 kg/m2 02/21/2014 Weight 194.00 lb Heart Rate 88 /min BP Systolic Sitting 132 mmHg BP Diastolic Sitting 80 mmHg 11/15/2013 Weight 188.00 lb Heart Rate 71 /min BP Systolic Sitting 104 mmHg BP Diastolic Sitting 70 mmHg Pain Level 8 08/16/2013 Heart Rate 78 /min BP Systolic Sitting 112 mmHg BP Diastolic Sitting 84 mmHg 05/09/2013 Height 64 inches 5'4" Weight 190.00 lb BP Systolic 104 mmHg BP Diastolic 68 mmHg Pain Level 8 neck, shoulders, low back BMI (Body Mass Index) 32.6 kg/m2 11/11/2012 Height 64 inches 5'4" Weight 185.00 lb BP Systolic 112 mmHg BP Diastolic 64 mmHg Pain Level 9 neck and back BMI (Body Mass Index) 31.8 kg/m2 04/03/2011 Height 64 inches 5'4" Weight 175.00 lb Heart Rate 85 /min BP Systolic 116 mmHg BP Diastolic 72 mmHg BMI (Body Mass Index) 30.0 kg/m2 Results Test Date Test Result H/L Range Note CBC Auto Diff 05/25/2012 White Blood Count 8.6 10^3/uL 4.8-10.8 Red Blood Count 4.13 10^6/uL 4.0-5.4 Hemoglobin 12.6 g/dL 12.0-16.0 Hematocrit 37 % 35-47 Mean Corpuscular Volume 90 fL 80-97 Mean Corpuscular Hemoglobin 31 pg 27-31 Mean Corpuscular HGB Conc 34 g/dL 31-36 Red Cell Distribution Width 13 % 10.5-15 Platelet Count 319 10^3/uL 150-450 Mean Platelet Volume 8 um3 7.4-10.4 Abs Neutrophils 6.7 10^3/uL 1.5-7.7 Abs Lymphocytes 0.9 10^3/uL Low 1.0-4.8 Abs Monocytes 0.5 10^3/uL 0-0.8 Abs Eosinophils 0.4 10^3/uL 0-0.6 Abs Basophils 0.1 10^3/uL 0-0.2 Abs Nucleated RBC 0 10^3/uL Granulocyte % 77.8 % 38-83 Lymphocyte % 10.6 % Low 25-47 Monocyte % 6.1 % 1-9 Eosinophil % 4.4 % 0-6 Basophil % 1.1 % 0-2 Nucleated Red Blood Cells % 0 Urinalysis 05/25/2012 Urine Color Yellow Urine Appearance Clear Urine Specific [place] 1.034 High 1.010-1.030 Urine Esterase Negative Negative Urine Nitrate Negative Negative Urine Urobilinogen Negative E.U./dL Negative Urine Protein Negative mg/dL Negative Urine pH 5.0 5-9 Urine Blood Negative Negative Urine Ketones Negative mg/dL Negative Urine Bilirubin Negative Negative Urine Glucose Negative mg/dL Negative Comp Metabolic Panel 05/25/2012 Sodium 138 mmol/L 133-145 Potassium 3.8 mmol/L 3.5-5.0 Chloride 107 mmol/L 101-111 Co2 Carbon Dioxide 25.0 mmol/L 22-32 Anion Gap 6.0 mmol/L 2-11 Glucose 101 mg/dL High 70-100 Blood Urea Nitrogen 10 mg/dL 6-24 Creatinine 0.60 mg/dL 0.50-1.40 BUN/Creatinine Ratio 16.7 8-20 Calcium 9.1 mg/dL 8.1-9.9 Total Protein 6.7 g/dL 6.2-8.1 Albumin 3.7 g/dL 3.6-5.4 Globulin 3.0 g/dL 2-4 Albumin/Globulin Ratio 1.2 1-3 Total Bilirubin 0.5 mg/dL 0.4-1.5 Alkaline Phosphatase 63 U/L 30-110 Alt 103 U/L High 14-54 Ast 106 U/L High 12-42 Egfr Non- 113.1 >60 Egfr 145.5 >60 1 Laboratory test 05/25/2012 C Reactive Protein 0.7 mg/dL High Less than 0.5 finding Surgical Pathology 04/29/2011 Surgical Pathology 2 - <SEE NOTE> Basic Metabolic 04/24/2011 Sodium 136 mmol/L 135-145 3 Panel Potassium 4.0 mmol/L 3.5-5.0 3 Chloride 104 mmol/L 101-111 3 Co2 (Carbon Dioxide) 26.0 mmol/L 22-32 3 Anion Gap 6.0 mmol/L 2-11 3, 4 Glucose 98 mg/dL 70-100 3 BUN 9 mg/dL 6-24 3 Creatinine 0.6 mg/dL 0.50-1.40 3 One Over Creatinine 1.66 3 BUN/Creatinine Ratio 15.0 8-20 3 Calcium 9.0 mg/dL 8.1-9.9 3 eGFR Non- 113.8 > 60 3 eGFR 146.3 > 60 3, 5 Laboratory test finding 04/24/2011 (HCG) Serum NEGATIVE Negative 3, 6 Type And Screen 04/24/2011 Patient Blood Type A POSITIVE 3 (Pre-Adm) Antibody Screen NEGATIVE 3 Specimen Discard Date 05/08/11 3, 7 Laboratory test finding 04/24/2011 PTT (Aptt) 28.6 SEC 25.1-38.5 3 Protime 04/24/2011 Inr 0.94 0.88-1.13 3, 8 Protime 11.1 SEC 10.3-13.5 3, 9 CBC Auto Diff 04/24/2011 White Blood Count 6.4 CUMM 4.8-10.8 3 Red Cell Count 4.33 CUMM 4.2-5.4 3 Hemoglobin 13.5 g/dL 12.0-16.0 3 Hematocrit 39 % 35-47 3 Mean Corpuscular Volume 90 um3 79-97 3 Mean Corpuscular Hemoglob 31 pg 27-31 3 Mean Corpuscular HGB Cone 35 g/dL 32-36 3 Redcell Distribution WDTH 13 % 10.5-15 3 Platelet Count 325 CUMM 150-450 3 Mean Platelet Volume 8.8 um3 7.4-10.4 3 Gran % 56.5 % 38-83 3 Lymph % 35.9 % 25-47 3 Mononuclear % 4.7 % 1-9 3 Eosinophil % 2.2 % 0-6 3 Basophil % 0.7 % 0-2 3 Abs Lymphs 2.3 1.0-4.8 3 Abs Mononuclear 0.3 0-0.8 3 Absolute Neutrophil Count 3.6 1.5-7.7 3 Abs Eosinophils 0.1 0-0.6 3 Abs Basophils 0 0-0.2 3 1 Because ethnic data is not always readily available, this report includes an eGFR for both -Americans and non- Americans. The National Kidney Disease Education Program (NKDEP) does not endorse the use of the MDRD equation for patients that are not between the ages of 18 and 70, are , have extremes of body size, muscle mass, or nutritional status, or are non- or non-. According to the National Kidney Foundation, irrespective of diagnosis, the stage of the disease is based on the level of kidney function: Stage Description GFR(mL/min/1.73 m(2)) 1 Kidney damage with normal or decreased GFR 90 2 Kidney damage with mild decrease in GFR 60-89 3 Moderate decrease in GFR 30-59 4 Severe decrease in GFR 15-29 5 Kidney failure <15 (or dialysis) 2 --- RUN DATE: 05/01/11 [facility] NMI LIVE PAGE 1 RUN TIME: 1412 Specimen Inquiry RUN USER: INTERFACE -- Name: JUSTICE GAGE Accqi#: [id number] Status: DIS IN Re04/29/11 Age/Sex: 35/F Unit#: [id number] Location: [facility] : 75 -- Specimen: [id number] KETURAH Spec Date:04/29/11 Dr: Mick echeverria MD Spec Type: SURGICAL P Received:04/30/11-1201 Copies to: SPECIMEN 1) C5-C6 DISC 2) C6-C7 DISC 3) C4-C5 DISC HISTORY PRE-OP DIAGNOSIS: C4-5, C5-6, C6-7 cervical herniated discs GROSS DESCRIPTION 1) The specimen is received in formalin labelled Justice Gage, Intervertebral C5/6, and consists of multiple hartley-yu fibrous soft tissue fragments measuring 3.7 x 2.5 cm. by up to 0.8 cm. in aggregate. Ios Architect section, one cassette. 2) The specimen is received in formalin labelled Justice Gage, C6/7 Disc, and consists of multiple hartley-yu soft tissue fragments measuring 3.0 x 1.5 x 0.5 cm. in aggregate. Ios Architect section, one cassette. 3) The specimen is received in formalin labelled Justice Gage, C4-5 Disc, and consists of multiple hartley-yu fibrous soft tissue fragments measuring 3.2 cm. by up to 2.0 cm. by up to 0.5 cm. in aggregate. Ios Architect section, one cassette. DIAGNOSIS 1) Intervertebral disc, C5-6, discectomy: Intervertebral disc material with myxoid degeneration and bone fragment. 2) Intervertebral disc, C6-7, discectomy: Intervertebral disc material with myxoid degeneration and bone fragment. 3) Intervertebral disc, C4-5, discectomy: Intervertebral disc material with myxoid degeneration and bone fragment. Signed Electronically by: DOYLE CLAYTON MD 05/01/11 1409 -- DEPARTMENT OF PATHOLOGY, [address] [place] [address] [facility] Permit #[id number] Doyle Clayton M.D. Director Manjinder Madrid M.D. Adult Literacy Instructor Dir peggy -- 3 AA 04/28 4 Anion gap measurement may be of limited value in the presence of any alkalosis, especially in a combined acid base disorder. . 5 Because ethnic data is not always readily available, this report includes an eGFR for both -Americans and non- Americans. The National Kidney Disease Education Program (NKDEP) does not endorse the use of the MDRD equation for patients that are not between the ages of 18 and 70, are , have extremes of body size, muscle mass, or nutritional status, or are non- or non-. According to the National Kidney Foundation, irrespective of diagnosis, the stage of the disease is based on the level of kidney function: Stage Description GFR(mL/min/1.73 m(2)) 1 Kidney damage with normal or decreased GFR 90 2 Kidney damage with mild decrease in GFR 60-89 3 Moderate decrease in GFR 30-59 4 Severe decrease in GFR 15-29 5 Kidney failure <15 (or dialysis) 6 If is still suspected, please repeat test after 48 to 72 hours. . This test detects intact HCG only and is indicated for the early detection of . 7 PREADMISSION TESTING SAMPLES FOR BLOOD BANK WILL BE HELD FOR 14 DAYS FROM THE DATE OF COLLECTION *IF* THE FOLLOWING CRITERIA ARE MET: 1) THE PATIENT HAS *NOT* BEEN IN THE LAST 3 MONTHS. 2) THE PATIENT HAS *NOT* BEEN TRANSFUSED IN THE LAST 3 MONTHS. PREADMISSION TESTING SAMPLES WILL *NOT* BE HELD FOR 14 DAYS FROM PATIENTS WHO IN THE LAST 3 MONTHS: 1) HAVE BEEN 2) HAVE BEEN TRANSFUSED THESE PATIENTS *MUST* BE COLLECTED WITHIN 3 DAYS OF THE SURGERY DATE. 8 Recommended INR for Patients on Oral Anticoagulants Prophylaxis 2.0 - 3.0 Treatment of thrombosis 2.0 - 3.0 Prevention of embolism 2.0 - 3.0 Prevention of embolism from prosthetic heart valves 2.5 - 3.5 9 DIAGNOSIS,TREATMENT,AND THERAPY MUST BE BASED ON THE INR VALUE ALONE. Procedures Date CPT Code Description Status 03/02/2017 44859 Nerve Conduction, Sensory Completed 03/02/2017 82277 Nerve Conduction, Motor W/F-Wave Study Completed 03/02/2017 39424 Nerve Conduction, Motor W/O F-Wave Study Completed 03/02/2017 32529 Needle Electromyography Complete, Five Or More Muscles Completed Studied 04/29/2011 30524 Discectomy; Cervical Each Addl Interspace Completed 04/29/2011 69752 Discectomy,W/Decomp SP Cord/Nerve Root;Cervical Single Completed Interspace 04/29/2011 21031 Anterior Instrumentation 2-3 Vertebral Segments Completed 04/29/2011 90684 Arthrodesis Anterior Interbody Technique W/Diskectomy, Completed Lumbar 04/29/2011 46503 Arthrodesis, Anterior Cervical C2 And Below Completed 04/29/201143934 Allograft For Spine Surgery,Structural (Bone Bank) Completed 04/03/2011 40510 Rad Exam; Elbow, Limited Completed 04/03/2011 04159 Rad Shoulder Comp, Min. 2 Views Completed Encounters Type Date Location Provider CPT E/M Dx Office Visit 10/01/2017 [facility] Services Dg Stein 42762 M50.03 9:40a Of Olga Priest Office Visit 09/13/2017 Neurosurgery Services Dg Stein 07520 M48.062 9:40a Of Olga Priest M47.12 Office Visit 09/08/2017 8:15a Katia Sorto 31206 M48.061 Neurologic Serv Of Olga Priest R20.2 Office Visit 03/10/2017 8:15a Katia Sorto 11783 R20.0 Neurologic Serv Of Probate Clerk M.D. M54.5 G89.29 M79.7 Office Visit 01/13/2017 10:30a [facility] Aidan Sorto, 85526 M54.5 Neurologic Serv Of Probate Clerk M.D. R20.0 R32 Office Visit 10/29/2016 10:03a Neurohospitalist [facility] Aidan Sorto, 32010 G89.29 M.DBi R20.2 R33.9 Office Visit 10/29/2016 1:29p [facility], [place] [address] M48.06 Hospitalists R53.1 G62.9 M79.7 Office Visit 10/28/2016 10:02a [facility] 95107 G89.29 M.DBi R20.2 R33.9 Office Visit 10/28/2016 7:00a Neurosurgery Services Dg Stein 75452 M48.06 Of Probate Clerk M.D. M54.2 M54.9 R20.0 R33.9 Office Visit 10/28/2016 1:28p [facility], [place] [address] M48.06 Hospitalists G62.9 R53.1 M79.7 Office Visit 10/27/2016 1:27p [facility], [place] [address] M48.06 Hospitalists G62.9 R53.1 M79.7 Office Visit 03/06/2015 11:20a Neurosurgery Services Alexi Medrano, 31316 M50.02 Of Probate Clerk [facility] G90.511 G90.512 Office Visit 11/28/2014 10:00a Neurosurgery Services Alexi Medrano, 82362 M50.02 Of Probate Clerk [facility] G90.511 G90.512 Office Visit 10/03/2014 1:00p Neurosurgery Services Alexi Medrano, 77351 722.71 Of Health system 337.21 Office Visit 08/22/2014 10:20a Neurosurgery Services Alexi Medrano, 94050 722.71 Of Health system 337.21 Office Visit 05/16/2014 10:20a Neurosurgery Services Alexi Medrano, 22145 722.71 Of Health system V45.4 337.21 337.22 Office Visit 02/21/2014 11:00a Neurosurgery Services Alexi Medrano, 07004 722.71 Of Health system V45.4 337.21 337.22 Office Visit 11/15/2013 10:00a Neurosurgery Services Alexi Medrano, 00661 722.71 Of Health system V45.4 Office Visit 08/16/2013 10:40a Neurosurgery Services Alexi Medrano, 15786 722.71 Of Health system 337.21 337.22 V45.4 Office Visit 05/09/2013 1:00p Neurosurgery Services Alexi Medrano 49082 722.71 Of [facility] Laura.D. V45.89 729.1 Office Visit 02/14/2013 3:00p Neurosurgery Services Alexi Medrano, 06222 722.71 Of [facility] M.D. V45.89 729.1 Office Visit 11/11/2012 3:00p Neurosurgery Services Alexi Medrano 20561 722.71 Of [facility] M.D. 723.0 729.1 V45.89 Office Visit 08/15/2012 10:00a Neurosurgery Services Alexi Medrano 38930 722.71 Of Probate Clerk M.D. 723.0 729.1 Office Visit 06/03/2012 9:20a Neurosurgery Services Alexi Medrano 80052 722.71 Of Probate Clerk M.D. 723.0 729.1 Office Visit 05/09/2012 11:00a Neurosurgery Services Alexi Medrano 79494 722.71 Of Probate Clerk M.D. 722.71 723.0 723.0 Office Visit 01/19/2012 2:40p Neurosurgery Services Alexi Medrano 72682 722.71 Of Probate Clerk M.D. 723.0 729.1 Office Visit 12/25/2011 10:20a Neurosurgery Services Alexi Medrano 54789 722.71 Of Olga Priest 723.0 729.1 Office Visit 10/20/2011 11:20a Neurosurgery Services Alexi Medrano, 65525 722.71 Of Olga rPiest Office Visit 09/30/2011 3:00p Neurosurgery Services Alexi Medrano, 68844 722.71 Of Olga Priest Office Visit 09/02/2011 11:00a Neurosurgery Services Alexi Medrano, 33653 722.71 Of Olga Priest 723.0 Plan of Care Future Appointment(s):01/07/2018 9:15 am - Aidan Sorto M.D. at [facility]10/13/2017 - Dg Stein M.D.M50.03 Cervical disc disorder w myelopathy, cervicothoracic region
--- NOTE | 2017-11-04 14:19 | RAD ---
Indication: RIGHT side weakness. Fall with head injury. Comparison: October 25, 2016 CT Technique: Noncontrast CT vertex of skull through foramen magnum. Report: Unremarkable cerebral sulci, ventricles, and basal cisterns. Negative for teixeira matter white matter obscuration, intra or extra-axial hemorrhage, or mass effect. Unremarkable orbital contents. Negative for calvarial or skull base fracture. Negative for scalp hematoma. Clear paranasal sinuses and mastoid air spaces. IMPRESSION: #. No CT evidence for traumatic brain injury or acute intracranial process.
--- NOTE | 2017-11-04 14:24 | RAD ---
INDICATION: Fall. Head injury. RIGHT-sided weakness. COMPARISON: October 08, 2017 CT. TECHNIQUE: Multidetector CT images foramen magnum to lung apices without contrast. Multiplanar reformation. REPORT: Postsurgical change of anterior C4-C7 fusion. No evidence for component failure or loosening of the anterior cortical plate or vertebral body screws. Solid osseous fusion across the C6-C7 disc space and less compelling fusion across the C5-C6 and C4-C5 disc spaces. Gated for facet subluxation at any level. Negative for cervical vertebral body or posterior element fracture. Negative for paravertebral hematoma. Moderately severe disc space narrowing at C7-T1 without significant change. Dorsal disc osteophyte complex results in mild impression on the ventral margin of the thecal sac without change. IMPRESSION: #. No CT evidence for traumatic cervical spine injury. Postsurgical changes of multilevel fusion as described.
[2017-11-04 14:32] LABS: ABS Basophils 0.1 10^3/ul (0-0.2); ABS Eosinophils 0.2 10^3/ul (0-0.6); ABS Lymphocytes 2.7 10^3/ul (1.0-4.8); ABS Monocytes 0.4 10^3/ul (0-0.8); ABS Neutrophils 4.4 10^3/ul (1.5-7.7); ABS Nucleated RBC 0 10^3/ul; Eosinophil % 2.6 % (0-6); Hematocrit 37 % (35-47); Hemoglobin 12.6 g/dl (12.0-16.0); Lymphocyte % 34.7 % (25-47); Mean Corpuscular HGB Conc 34 g/dl (31-36); Mean Corpuscular Hemoglobin 30 pg (27-31); Mean Corpuscular Volume 88 fL (80-97); Mean Platelet Volume 8.1 um3 (7.4-10.4); Nucleated Red Blood Cells % 0.1; Platelet Count 321 10^3/ul (150-450); Red Blood Count 4.27 10^6/ul (4.00-5.40); Red Cell Distribution Width 14 % (10.5-15); White Blood Count 7.7 10^3/ul (3.5-10.8)
[2017-11-04 16:24] VITALS: BP 126/74
== END 2017-11-04 16:24 | disposition home or self-care (01) ==
LOC: ED 12:46
DX: S19.9XXA Unspecified injury of neck, initial encounter (principal); S09.90XA Unspecified injury of head, initial encounter; F17.210 Nicotine dependence, cigarettes, uncomplicated; W19.XXXA Unspecified fall, initial encounter; Y92.9 Unspecified place or not applicable; Z86.73 Personal history of transient ischemic attack (TIA), and cerebral infarction without residual deficits
CPT/HCPCS: 36415; 70450; 72125; 80053; 84484; 85025; 85610; 85730; 93005; 99282